=== PATIENT | female | born 1995 | race African-American/Black ===

== ENCOUNTER → 2016-09-08 15:57 | Outpatient (CLI) | payer OTHER ==
[2014-08-27 07:47] VITALS: BMI 32.3
[~2016-09-08 15:57] MED LIST: IBUPROFEN600 MG PO; MOTRIN600 MG PO; NORCO 5/325 TAB1 TA1 PO; PRENATAL COMPLE1 TAB PO
[2016-09-08 16:38] LABS: APPEARANCE CLOUDY (CLEAR); BILIRUBIN NEGATIVE (NEGATIVE); COLOR YELLOW (YELLOW); GLUCOSE NEGATIVE (NEGATIVE); KETONE NEGATIVE (NEGATIVE); LEUKOCYTE ESTERASE 1+ (NEGATIVE); NITRITE NEGATIVE (NEGATIVE); PROTEIN TRACE mg/dL (NEGATIVE); UROBILINOGEN NORMAL (NORMAL)
[2016-09-08 16:39] LABS: BACTERIA MODERATE /hpf (NONE SEEN); EPITHELIAL CELLS 0-5 /hpf (0-5); MUCUS >1+ /lpf (NONE SEEN)
== END | disposition home or self-care (01) ==
LOC: D.LDO 15:57
PROVIDERS: Obstetrics & Gynecology
DX: O26.899 Other specified pregnancy related conditions, unspecified trimester (principal); R35.0 Frequency of micturition; R30.0 Dysuria

== ENCOUNTER → 2016-11-16 13:53 | Outpatient (CLI) | payer OTHER ==
[2014-08-27 07:47] VITALS: BMI 32.3
[~2016-11-16 13:53] MED LIST changes: +FERROUS SULFAT325 MG PO
[2016-11-16 14:39] LABS: APPEARANCE CLEAR (CLEAR); COLOR YELLOW (YELLOW)
[2016-11-16 14:41] LABS: BACTERIA MODERATE /hpf (NONE SEEN); BILIRUBIN NEGATIVE (NEGATIVE); GLUCOSE NEGATIVE (NEGATIVE); KETONE NEGATIVE (NEGATIVE); LEUKOCYTE ESTERASE 1+ (NEGATIVE); MUCUS <1+ /lpf (NONE SEEN); NITRITE NEGATIVE (NEGATIVE); PROTEIN NEGATIVE (NEGATIVE); RED CELLS - URINE RARE /hpf (0-5); SPECIFIC GRAVITY 1.005 (1.005-1.020)
[2016-11-16 15:37] LABS: BASOPHILS 0.2 % (0-2); EOSINOPHILS 0.7 % (0-7); HEMATOCRIT 32.1 % (36.0-48.0); HEMOGLOBIN 10.7 g/dL (12-16); IMMATURE GRANULOCYTES 0.5 % (0-5); LYMPHOCYTES 19.2 % (15-50); MCHC 33.3 g/dL (31.0-37.0); MEAN PLATELET VOLUME 11.9 fL (7.4-10.4); MONOCYTES 5.2 % (2-11); NEUTROPHILS 74.2 % (40-80); PLATELET COUNT 160 10x3/uL (130-400); RBC 3.82 10x6/uL (4.00-5.40); RDW 14.6 % (11.5-14.5); WBC 5.8 10x3/uL (4.8-10.8)
== END | disposition home or self-care (01) ==
LOC: D.LDO 13:53
PROVIDERS: Obstetrics & Gynecology
DX: Z34.83 Encounter for supervision of other normal pregnancy, third trimester (principal); Z3A.37 37 weeks gestation of pregnancy

== ENCOUNTER 2016-12-05 05:07 | Inpatient (IN) | payer OTHER ==
[~2016-12-05] VITALS: Ht 165.1 cm; Wt 86.2 kg
[2016-12-05] VITALS (17 sets, daily range): BP systolic 111–143; BP diastolic 58–75; BMI 31.6
--- NOTE | ~2016-12-05 | OP ---
PATIENT NAME: SATHYA BUITRAGO MEDICAL RECORD: [id number] :94 LOCATION:[facility] ADMISSION DATE:12/05/16 SURGEON: MAGEN DEVLIN MD DATE OF OPERATION: 12/05/2016 PREOPERATIVE DIAGNOSES: 1. Term 40-week . 2. Augmentation of labor. 3. intolerance to labor. POSTOPERATIVE DIAGNOSES: 1. Term 40-week . 2. Augmentation of labor. 3. intolerance to labor. 4. asynclitism. 5. Nuchal cord times 2. PROCEDURE: A primary low transverse section. SURGEON: Magen Devlin MD. ESTIMATED BLOOD LOSS: 2000 cc. INTRAVENOUS FLUIDS: Crystalloid per anesthesia record plus 2 units of packed red blood cells. SPECIMENS: Placenta and cord for gases. FINDINGS: 1. Viable infant, Apgars 9 at 1 and 9 at 5. 2. asynclitism noted upon delivery of the head. 3. Nuchal cord times 2 noted. 4. Lateral extension of the low transverse incision into the main branches of the uterine artery. COMPLICATIONS: None apparent. DESCRIPTION OF PROCEDURE: The patient was taken to the operating room where spinal anesthesia was achieved without difficulty. The patient was then prepped and draped in normal sterile fashion in the dorsal supine position. Turner catheter was placed and a small amount of blood was noted in the Turner upon placement. SCDs were on and functioning properly. The patient was prepped and draped. A Pfannenstiel incision was made, extended downward to the underlying subcutaneous fat to level of the fascia, which was then excised in the midline with a scalpel and excised bilaterally using the Herrera scissors. Superior and inferior aspects of the fascial incision were then grasped with Rob clamps times 2, tented upward and sharply dissected from the underlying rectus muscle. At this point, the rectus muscles were bluntly in the midline. The peritoneum was entered bluntly at the superior aspect of the incision. The peritoneal incision was then extended bilaterally using the Bovie cautery. A bladder flap was created by excising the anterior leaf of the broad ligament across the lower uterine segment and gently dissecting the bladder downward. At this point, a low transverse incision was made and extended superiorly and inferiorly using the Pelosi method. The infant was noted to be deep in the pelvis and asynclitic. The head was delivered upwards towards the incision and OPERATIVE REPORT [id number] SATHYA BUITRAGO delivered atraumatically. A nuchal cord times 2 was noted to be present. The nuchal cord was then reduced and the cord was clamped times 2, cut and the was handed to the awaiting nursery team. Cord was then obtained for gases. The placenta was then manually removed and the uterus was vigorously massaged until a good tone was noted. Brisk bleeding was noted from bilateral corners and these larger branches of the uterine artery were clamped with ring forceps times 2 and the margins of the uterine incision were identified and held using Allis clamps. A good assured distance from the bladder was noted. Repair of the left corner was performed using 0 Vicryl until the corner was built up with 0 Vicryl in a running locked fashion. This was then tied and cut. A second 0 Vicryl was then used to extend across the middle half of the incision. The right corner was then addressed. A large branch of the uterine artery was identified and oversewn using 2-0 Vicryl. The right aspect of the uterine incision was then sewn together with 0 Vicryl using a running locked fashion. A layer of myometrium was then reapproximated to the lower aspect of the incision using 2-0 Vicryl. Good hemostasis noted. At this point, the posterior cul-de-sacs was then thoroughly irrigated and the uterus was replaced into the pelvis. The anterior cul-de-sac was then thoroughly irrigated. No active bleeding was noted. Spud dust and FloSeal was used on the surgical sites to prevent further oozing. At this point, counts were correct times 2. The fascia was repaired with 0 loop PDS times 1 and the skin repaired with abhishek. The patient tolerated the procedure well. Weighing of the lap sponges for accurate blood loss was performed revealing approximately 1600 cc of blood loss and some amount in the suction canister, which also contained irrigation and amniotic fluid. Estimated blood loss found to be about 2000 cc. The patient was started on 1 of 2 units of packed red blood cells intraoperatively. Vital signs remained stable throughout the case. Good hemostasis was noted. The fascia was repaired with 0 loop PDS times 1 and the skin repaired with abhishek. The patient tolerated the procedure well, transferred to postanesthesia recovery stable without incident. TRANSINT:[id number] Voice Confirmation ID: [id number] DOCUMENT ID: [id number] MAGEN DEVLIN MD CC: [id number] DICTATION DATE: 12/05/16 1629 DRAMA CRITIC: 12/05/16 1709 ADM IN [place] [id number] [place] [address]
[2016-12-05] MEDS ORDERED: PRENATAL COMPLE1 TAB PO (05:30)
[2016-12-05] MEDS ORDERED: FERROUS SULFAT325 MG PO (05:30)
[2016-12-05 06:44] LABS: UDS - AMPHET NEGATIVE QUAL (NEGATIVE); UDS - BARB NEGATIVE QUAL (NEGATIVE); UDS - BENZO NEGATIVE QUAL (NEGATIVE); UDS - COCAINE NEGATIVE QUAL (NEGATIVE); UDS - METH NEGATIVE QUAL (NEGATIVE); UDS - OPIATE NEGATIVE QUAL (NEGATIVE); UDS - PCP NEGATIVE QUAL (NEGATIVE); UDS - THC NEGATIVE QUAL (NEGATIVE)
[2016-12-05 06:48] LABS: HEMATOCRIT 32.7 % (36.0-48.0); HEMOGLOBIN 10.6 g/dL (12-16); MCH 27.3 pg (26.0-34.0); MCHC 32.4 g/dL (31.0-37.0); MCV 84.3 fL (80.0-100.0); MEAN PLATELET VOLUME 12.6 fL (7.4-10.4); RBC 3.88 10x6/uL (4.00-5.40); RDW 14.6 % (11.5-14.5); WBC 8.4 10x3/uL (4.8-10.8)
--- NOTE | 2016-12-05 16:21 | NUR ---
ONE UNIT OF [facility]S ADMIN IN OR AND ONE STARTED IN PACU.
--- NOTE | 2016-12-05 16:24 | NUR ---
FUNDUS FIRM AT UMBILICUS WITH MINIMAL LOCIA. THE PATIENT APPEARS TO REST COMFORTABLE
--- NOTE | 2016-12-05 16:35 | NUR ---
RECEIVED PT FROM VIA BED TO ROOM 1273. BED LOCKED AND PLACED IN LOW POSITION. VSS. AAO X 3. HRRR WITHOUT AUDIBLE MURMUR. BBS CLEAR. BS X 4. FUNDUS FIRM AT U/U. RUBRA LOCHIA SCANT AMT. NO CLOTS NOTED. ABDOMINAL DRESSING DRY WITHOUT DRAINAGE NOTED. NEG HOMANS' SIGN. PPP. NO EDEMA NOTED TO BLE. SCDS ON BLE. PUMP ON. CHANEY TO GRAVITY DRAINING BLOOD-TINGED URINE. 1700 ML EMPTIED FROM CHANEY. PIV OF NS WITH PITOCIN INFUSING AT 125 ML/HR. SITE CLEAR TO RIGHT FOREARM. BLOOD INFUSING VIA RANGER BLOOD WARMER AT SLOW RATE. PT C/O INCISIONAL PAIN OF "8" ON 0-10 PAIN SCALE. ICE PACK TO INCISION. PT ORIENTED TO ROOM, BED, AND CALL LIGHT. SR UPX 2. CALL LIGHT IN REACH.
--- NOTE | 2016-12-05 16:45 | NUR ---
PT REQUESTS AND RECEIVES ICE PACK REMOVED AT THIS TIME. PT C/O PAIN WITH ICE PACK IN PLACE.
--- NOTE | 2016-12-05 16:50 | NUR ---
DILAUDID SALES EXHIBITOR STARTED ORDERED. PT INSTRUCTED ON MEDICATION AND USE OF BUTTON. DEMONSTRATES UNDERSTANDING.
--- NOTE | 2016-12-05 17:15 | NUR ---
BLOOD TRANSFUSION COMPLETED. NS INFUSING TO FLUSH LINE. VSS. SITE CLEAR. PT ISRAEL WELL.
--- NOTE | 2016-12-05 17:25 | NUR ---
BLOOD TUBING DISCONTINUED. PIV SITE CLEAR.
--- NOTE | 2016-12-05 17:30 | NUR ---
SMALLER ICE PACK TO INCISION. PT STATES SMALLER ICE PACK LESS PAINFUL.
--- NOTE | 2016-12-05 17:45 | NUR ---
PT STATES "I CAN'T DO THIS ICE PACK". ICE PACK REMOVED PER PT REQUEST.
--- NOTE | 2016-12-05 17:55 | NUR ---
FUNDUS FIRM AT U/U. RUBRA LOCHIA MOD AMT. NO CLOTS NOTED. PERIPAD CHANGED.
--- NOTE | 2016-12-05 18:00 | NUR ---
PT LYING SUPINE IN BED. VISITS WITH FAMILY. REQUESTS AND RECEIVES LEMON-NAPAIMUTE SODA.
--- NOTE | 2016-12-05 18:33 | NUR ---
FAMILY MEMBER IN [facility]. STATES "SHE NEEDS SOME ICE WATER". ICE WATER TO PT AT THIS TIME. PT C/O PAIN NOT RELIEVED BY DILAUDID ORTHOPEDIC DESIGNER. FUNDUS FIRM AT U/U. RUBRA LOCHIA MOD AMT. NO CLOTS NOTED. PERIPAD CHANGED.
--- NOTE | 2016-12-05 18:34 | NUR ---
ROOM NOTED WITH SEVERAL FAMILY MEMBERS. FAMILY ENCOURAGED TO ALLOW PT TO REST AND MINIMIZE NUMBER IN ROOM AT A TIME.
--- NOTE | 2016-12-05 18:40 | NUR ---
DR FARRIS NOTIFIED OF PT C/O PAIN NOT RELIEVED BY CHIEF UNIT FORESTER. NEW ORDERS RECEIVED.
--- NOTE | 2016-12-05 18:50 | NUR ---
DILAUDID 0.4 MG BOLUS DOSE GIVEN ORDERED FOR BREAKTHROUGH PAIN. BRAKE OPERATOR SHEET METAL REPROGRAMMED ORDERED ( 0.2 MG Q 9 MINUTES WITH 6 MG EVERY 4 HOUR LOCKOUT). PT INSTRUCTED ON DOSAGE CHANGE WITH MEDICATION. PT VERBALIZES UNDERSTANDING.
--- NOTE | 2016-12-05 18:58 | NUR ---
REPORT GIVEN TO ON-COMING SHIFT.
--- NOTE | 2016-12-05 19:12 | NUR ---
BEDSIDE REPORT REC'D FROM Brigido VELASCO RN. PT REC'D LAYING ON BACK IN SEMI FOWLERS POSITION. PT TEARFUL AND PANTING, STATING THAT SHE IS HURTING. ENCOURAGED TO SLOW BREATHING BY TAKING SLOW DEEP BREATH AND AVOID TENSING UP. PT DEMONSTRATES UNDERSTANDING. SHIFT ASSESSMENT COMPLETED. PAIN 10/, ABD AND INCISION. PT STATES THAT SHUTTLE BUGGY OPERATOR DOES HELP BUT IS NOT TAKING PAIN AWAY, VERBALIZED THAT SHE KNEW SHE WOULD HAVE PAIN BUT PAIN AT BEST 12/25. FUNDUS FIRM, U1 WITH MODERATE AMT RUBRA LOCHIA TO PERIPAD, NO CLOTS NOTED. PERIPAD CHANGED. DRSG TO INCISION, CLEAN, DRY, AND INTACT. HYPOACTIVE BOWEL SOUNDS PRESENT IN ALL 4 QUADRANTS, PT STATES THAT SHE HAS NOT PASSED FLATUS YET. 325 MLS EMPTIED FROM CHANEY. EDUCATED ON IMPORTANCE OF COUGHING AND DEEP BREATHING, TURNING Q2 AND USING INCENTIVE SPIROMETER, PT VERBALIZED UNDERSTANDING OF IMPORTANCE OF USING, HOWEVER REFUSES AT THIS TIME STATING "I JUST CAN'T WHILE I'M HURTING LIKE THIS." INSTRUCTED ON SPLINTING AND USE OF ICE PACK, PT REFUSES ICE PACK STATING IT IS TOO HEAVY AND CAUSES HER MORE PAIN. PT DEMONSTRATES SPLINTING TO RN. PT REFUSES TO TURN TO SIDE AT THIS TIME. SCD'S REMOVED, SKIN WDL, SCD'S REAPPLIED. ICE WATER GIVEN. VISITOR CONVERSING, ENCOURAGED VISITOR TO LEAVE ROOM TO CONVERSE. LIGHTS DIMMED AND COOL CLOTH GIVEN TO PT. BREATH SOUNDS CLEAR, UNEQUAL AND UNLABORED. DENIES ADDITIONAL NEEDS. BED IN LOW POSITION WITH UPPER SIDE RAILS X2. CL AND PHONE WITHIN REACH. WILL CONT TO MONITOR AND ASSIST PRN. DR. AMES NOW AT BEDSIDE CONVERSING WITH PT. WILL CONT TO MONITOR AND ASSIST PRN.
[2016-12-05 19:18] LABS: CALC OSMOLALITY 271 mosm/kg (275-300); CALCIUM 7.3 mg/dL (8.5-10.1); CARBON DIOXIDE 20.3 mmol/L (21.0-32.0); CHLORIDE - SERUM 106 mmol/L (98-107); CREATININE - SERUM 0.5 mg/dL (0.6-1.3); GLUCOSE 86 mg/dL (74-106); SODIUM 138 mmol/L (136-145); UREA NITROGEN 5 mg/dL (7-18); eGFR NON AFRICAN AMERICAN > 90 mL/min (90-120)
[2016-12-05 19:28] LABS: BASOPHILS 0.1 % (0-2); EOSINOPHILS 0 % (0-7); HEMATOCRIT 34.3 % (36.0-48.0); HEMOGLOBIN 11.3 g/dL (12-16); IMMATURE GRANULOCYTES 0.5 % (0-5); LYMPHOCYTES 3.3 % (15-50); MCH 27.8 pg (26.0-34.0); MCHC 32.9 g/dL (31.0-37.0); MCV 84.3 fL (80.0-100.0); MEAN PLATELET VOLUME 11.8 fL (7.4-10.4); MONOCYTES 5.2 % (2-11); NEUTROPHILS 90.9 % (40-80); PLATELET COUNT 135 10x3/uL (130-400); RBC 4.07 10x6/uL (4.00-5.40); RDW 14.4 % (11.5-14.5); WBC 19.8 10x3/uL (4.8-10.8)
--- NOTE | 2016-12-05 19:35 | NUR ---
LAB RESULTS CALLED TO DR. FARRIS. REPORTED PT UNCONTROLLED PAIN. ORDERS REC'D TO GIVE TORADOL Q 6 HOURS PRN PAIN.
--- NOTE | 2016-12-05 19:42 | NUR ---
PAIN 10/10, TO ABD AND INCISION, CONSTANT ACHING, BURNING, STINGING, CRAMPING AND THROBBING PER PT REPORT. UPDATED ON PLAN OF CARE AND NEW ORDERS FOR TORADOL. EDUCATED ON MEDICATION USE, FREQUENCY BEING PRN, AND SIDE EFFECTS. VERBALIZED UNDERSTANDING. TORADOL GIVEN. PT REQUEST FAN, PROVIDED PER REQUEST, IN NBN AND ROOM TEMP DECREASED. PT VERBALIZED UNDERSTANDING THAT ROOM TEMP WOULD HAVE TO BE INCREASED WHEN INFANT CAME BACK TO ROOM. PT NOTED TO BE GRIMACING AND RESTLESS, FAMILY MEMBERS REMAIN AT BEDSIDE. LIGHTS TURNED OFF, AND VISITOR ENCOURAGED TO REMAIN QUIET. ADDITIONAL PILLOW PLACED UNDER LOWER BACK FOR COMFORT PER PT REQUEST. BED REMAINS IN LOW POSITION WITH UPPER SIDE RAILS RAISED X2. CL AND PHONE PLACED WITHIN REACH. PT CONTINUES TO REFUSE TO USE INCENTIVE SPIROMETER, AND PERFORM COUGHING AND DEEP BREATHING.
--- NOTE | 2016-12-05 20:16 | NUR ---
RN TO BEDSIDE FOR PAIN REASSESSMENT, PAIN 09/24, PT ON CELL PHONE AT THIS TIME. STATES PAIN IS MUCH MORE TOLERABLE AND SHE IS ABLE TO REST. FAMILY MEMBER IN THE SHOWER AT THIS TIME. PT STATES THAT OTHER VISITORS ARE IN THE WAITING ROOM. DENIES NEEDS AT THIS TIME. BED IN LOW POSITION WITH UPPER SIDE RAILS RAISED X2. CL AND PHONE WITHIN REACH. WILL CONT TO MONITOR AND ASSIST PRN. PT CONTINUES TO REFUSE USE OF INCENTIVE SPIROMETER AND COUGH/DEEP BREATHING EXERCISES AT THIS TIME.
--- NOTE | 2016-12-05 21:18 | NUR ---
RN TO BEDSIDE FOR ROUNDS. PT RATES PAIN 6/10 TO ABD CRAMPING AND SORENESS, AND BURNING AND STINGING TO THE INCISION. PT AGREEABLE TO REPOSITIONING, REPOSITIONED TO RIGHT SIDE WITH PILLOW PLACED BEHIND BACK FOR COMFORT AND SUPPORT. MODERATE AMT RUBRA LOCHIA NOTED TO PERIPAD, NO CLOTS, FUNDUS REMAINS FIRM, U1, NO CLOTS PRESENT. PERINUM CLEANSED, AND PERIPAD CHANGED. DRSG TO INCISION REMAINS CLEAN, DRY, AND INTACT. NEW ICE PACK APPLIED OVER GOWN TO INCISION. PT REFUSED DEEP BREATHING AND COUGHING BUT DID PERFORM INCENTIVE SPIROMETER X10 WITH GOOD EFFORT. APPLE JUICE GIVEN PER REQUEST. LINENS PROVIDED TO FRIEND THAT IS STAYING WITH PT. DENIES ADDITIONAL NEEDS AT THIS TIME. BED IN LOW POSITION WITH UPPER SIDE RAILS RAISED X2. CL AND PHONE WITHIN REACH. WILL CONT TO MONITOR AND ASSIST PRN. 200 MLS EMPTIED FROM CHANEY.
--- NOTE | 2016-12-05 22:08 | NUR ---
RN TO BEDSIDE FOR ROUNDS. PT BONDING WITH INFANT. STATES PAIN IS 5-6/10. DENIES NEEDS AT THIS TIME. FAMILY MEMBERS NOW AT BEDSIDE AND PT ALSO CONVERSING WITH FAMILY AND LAUGHING. BED IN LOW POSITION WITH UPPER SIDE RAILS RAISED X2. CL AND PHONE WITHIN REACH. WILL CONT TO MONITOR AND ASSIST PRN.
--- NOTE | 2016-12-05 23:28 | NUR ---
RN TO BEDSIDE. PERINUM CLEANSED. CHUX AND PERIPAD CHANGED. VSS. MODERATE AMT RUBRA LOCHIA TO PERIPAD, NO CLOTS NOTED. ICE PACK REMOVED. DRSG REMAINS CLEAN, DRY, AND INTACT. PT TURNED TO LEFT SIDE WITH PILLOW PLACED BEHIND BACK FOR COMFORT AND SUPPORT AND MOVED UP IN BED. 175 MLS PRESENT IN CHANEY. PT CLEANSED FACE AND UPPER BODY AND DEORDERANT AND LOTION PROVIDED PER REQUEST. PAIN 5-6/10 FOLLOWING ACTIVITY, REPORTS 4/10 PRIOR TO ACTIVITY. POPICLE, SODA, AND ICE WATER GIVEN. DENIES ADDITIONAL NEEDS AT THIS TIME. REQUESTED ICE PACK REMAIN OFF OF INCISION. BED IN LOW POSITION WITH UPPER SIDE RAILS RAISED X2. CL AND PHONE WITHIN REACH. FRIEND REMAINS AT BEDSIDE RESTING ON COUCH. WILL CONT TO MONITOR AND ASSIST PRN.
--- NOTE | 2016-12-06 00:50 | NUR ---
NEW BAG NS WITH 20 UNITS PIT HUNG. PT GRIMACING AND TEARFUL. STATES THAT SHE IS HURTING. REQUESTS TORADOL, FREQUENCY EXPLAINED. DISCUSSED PATTERN WEAVER BOLUS DOSE, PT AGREEABLE. 0.4 MG BOLUS OF DILUADAD GIVEN PER ORDER. DENIES ADDITIONAL NEEDS AT THIS TIME. PT ALSO DEEP BREATHING AT THIS TIME. BED IN LOW POSITION WITH UPPER SIDE RAILS RAISED X2. CL AND PHONE WITHIN REACH. WILL CONT TO MONITOR AND ASSIST PRN.
--- NOTE | 2016-12-06 01:41 | NUR ---
RN TO BEDSIDE FOR ROUNDS. PT TALKING ON CELL PHONE. PAIN 10/24, TORADOL GIVEN SIVP PER REQUEST. 200 MLS EMPTIED FROM CHANEY. PT POSITIONED SELF TO BACK FROM SIDE. INCENTIVE SPIROMETER DONE X10 WITH GOOD EFFORT. PT REFUSED TO COUGH BUT DID PERFORM DEEP BREATHING WITH GOOD EFFORT. ICE CHIPS GIVEN PER REQUEST. DENIES ADDITIONAL NEEDS AT THIS TIME. BED IN LOW POSITION WITH UPPER SIDE RAILS RAISED X2. CL AND PHONE WITHIN REACH. WILL CONT TO MONITOR AND ASSIST PRN.
--- NOTE | 2016-12-06 02:15 | NUR ---
PAIN REASSESSMENT COMPLETED. PT RESTING WITH EYES CLOSED, OPENS EYES WITH DOOR OPENING. PAIN 4/10. DENIES ADDITIONAL NEEDS AT THIS TIME. BED IN LOW POSITION WITH UPPER SIDE RAILS RAISED X2. CL AND PHONE WITHIN REACH. WILL CONT TO MONTIOR AND ASSIST PRN.
[2016-12-06 04:08] VITALS: BP 119/65
--- NOTE | 2016-12-06 04:08 | NUR ---
RN TO BEDSIDE FOR ROUNDS. PT TEXTING AT THIS TIME. PAIN 5-6/10 TO ABD AND INCISION. VSS. FUNDUS FIRM, U2 WITH SMALL AMT RUBRA LOCHIA TO PERIPAD, NO CLOTS PRESENT. PERINUM CLEANSED, CHUX CHANGED PER PT REQUEST. 160 MLS EMPTIED FROM CHANEY. INCENTIVE SPIROMETER USED X10 WITH DEEP BREATHING DONE WITH GOOD EFFORT. PT CONTINUES TO REFUSE TO COUGH, REINFORCED IMPORTANCE OF COUGHING ALSO. ICE WATER, APPLE JUICE, AND ICE CHIPS GIVEN PER REQUEST. SCD'S REMAIN ON. DENIES ADDITIONAL NEEDS AT THIS TIME. REQUESTS BE BROUGHT TO ROOM. BED IN LOW POSITIONG WITH UPPER SIDE RAILS RAISED X2. CL AND PHONE WITHIN REACH. WILL CONT TO MONITOR AND ASSIST PRN.
--- NOTE | 2016-12-06 04:28 | NUR ---
INFANT BROUGHT TO ROOM BY RN. ID BANDS MATCHED. INFANT HANDED TO PT. INSTRUCTED TO USE CL IF ASSISTANCE IS NEEDED WITH OR IF SHE BECOMES DROWSY, VERBALIZED UNDERSTANDING. CL AND PHONE WITHIN REACH. BED IN LOW POSITION WITH UPPER SIDE RAILS RAISED X2. WILL CONT TO MONITOR AND ASSIST PRN.
--- NOTE | 2016-12-06 06:12 | NUR ---
RN TO BEDSIDE FOR ROUNDS. LAB AT BEDSIDE DRAWING BLOOD. CHANEY DRAINED, 275 MLS EMPTIED FROM CHANEY. PT RATES PAIN 11/24, REQUESTED TORADOL, EXPLAINED THAT IT WASN'T TIME FOR TORADOL, PT REQUESTED BOLUS FROM MANUFACTURERS SERVICE REPRESENTATIVE, BOLUS GIVEN. PERINUM CLEANSED, PERIPAD CHANGED WITH SCANT AMT RUBRA LOCHIA. PT POSITIONED SELF TO BACK. ICE PACK REAPPLIED. DENIES ADDITIONAL NEEDS AT THIS TIME. BED IN LOW POSITION WITH UPPER SIDE RAILS RAISED X2. CL AND PHONE WITHIN REACH. WILL CONT TO MONITOR AND ASSIST PRN.
[2016-12-06 06:59] LABS: BASOPHILS 0.1 % (0-2); EOSINOPHILS 0.1 % (0-7); HEMATOCRIT 29.1 % (36.0-48.0); HEMOGLOBIN 9.7 g/dL (12-16); IMMATURE GRANULOCYTES 0.2 % (0-5); LYMPHOCYTES 5.2 % (15-50); MCH 27.6 pg (26.0-34.0); MCHC 33.3 g/dL (31.0-37.0); MCV 82.9 fL (80.0-100.0); MEAN PLATELET VOLUME 11.5 fL (7.4-10.4); MONOCYTES 4.1 % (2-11); NEUTROPHILS 90.3 % (40-80); PLATELET COUNT 125 10x3/uL (130-400); RBC 3.51 10x6/uL (4.00-5.40); RDW 14.7 % (11.5-14.5)
[2016-12-06 07:07] LABS: CALC OSMOLALITY 269 mosm/kg (275-300); CALCIUM 7.7 mg/dL (8.5-10.1); CARBON DIOXIDE 24.5 mmol/L (21.0-32.0); CHLORIDE - SERUM 104 mmol/L (98-107); CREATININE - SERUM 0.6 mg/dL (0.6-1.3); GLUCOSE 80 mg/dL (74-106); POTASSIUM - SERUM 3.7 mmol/L (3.5-5.1); SODIUM 137 mmol/L (136-145); UREA NITROGEN 5 mg/dL (7-18); eGFR NON AFRICAN AMERICAN > 90 mL/min (90-120)
[2016-12-06 07:09] LABS: APTT 31.5 SECONDS (22.8-39.4); INR 1.26 (0.85-1.17); PROTIME 15.6 SECONDS (11.6-15.0)
[2016-12-06 07:22] LABS: RAPID PLASMA REAGIN Non Reactive (Non Reactive)
[2016-12-06 07:32] VITALS: BP 112/69
--- NOTE | 2016-12-06 07:32 | NUR ---
THIS RN TO ROOM FOR SHIFT ASSESSMENT. PT LYING IN BED ON BACK, HOB 30 DEGREES, LIGHTS IN ROOM DIMMED. PT AAOx3. PT RATES PAIN 6/10, WORSE WITH MOVEMENT, REQUESTS ADDITIONAL PAIN MED IF POSSIBLE. SHIFT ASSESSMENT COMPLETE, VSS, SEE FLOWSHEET FOR DOC. PITOCIN AND DILAUDID DEVELOPMENT GEOLOGIST INFUSING TO PATENT RIGHT FA PIV, NO SIGNS OF PHLEBITIS OR INFILTRATION. FF, ML, U/2. NO LOCHIA NOTED, PT STATES PM NURSE RECENTLY CHANGED IT. OCCLUSIVE DSG OVER LT ABD INCISIONS IS C/D/I. CHANEY CATH DRAINING DARK YELLOW URINE TO BEDSIDE DRAINAGE. 125ML EMPTIED FROM UROMETER. SCD'S ON BILAT TO LE. WILL RETURN WITH PRN TORADOL.
--- NOTE | 2016-12-06 07:47 | NUR ---
PT ADMIN PRN TORADOL PER ORDER FOR PAIN RATED 6/10, WORSE WITH MOVEMENT. NEW ICE PACK TO INCISION. PT INSTRUCTED ON COUGH AND DEEP BREATHING, RETURN DEMONSTRATES x2 WITH WEAK EFFORT, PT ENCOURAGED AND INSTRUCTED ON IMPORTANCE OF COUGHING AND DEEP BREATHING. UNDERSTANDING VERBALIZED. PT DENIES FURTHER NEEDS. SRUx2, CL IN REACH.
--- NOTE | 2016-12-06 08:11 | NUR ---
DR FARRIS TO ROOM, ROUNDING ON PT.
--- NOTE | 2016-12-06 08:35 | NUR ---
THIS RN TO ROOM FOR PAIN REASSESSMENT. PT STATES PAIN IS BETTER, BUT CONTINUES TO RATE PAIN 6/10. CHANEY CATH REMOVED, PT INSTRUCTED TO CALL WHEN SHE FEELS THE URGE TO VOID AND THIS RN WILL ASSIST HER TO BR. PT INSTRUCTED IV MEDS WILL BE TURNED OFF AND PO MEDS STARTED, AND GOALS FOR TODAY ARE TO WALK AND SHOWER. UNDERSTANDING VERBALIZED. PT ASSISTED TO SITTING UP IN BED TO EAT BREAKFAST. PT DENIES FURTHER NEEDS. SRUx2, CL IN REACH. WILL CONT TO MONITOR.
--- NOTE | 2016-12-06 09:29 | NUR ---
THIS RN TO ROOM FOR PT CHECK. PT SITTING UP IN BED HOLDING INFANT, AAOx3, DENIES ANY NEEDS AT THIS TIME. ROOM TRASH TAKEN OUT. MENU COLLECTED FOR FANS STAFF. SRDori2 CL IN REACH. WILL CONT TO MONITOR.
--- NOTE | 2016-12-06 09:40 | NUR ---
PT CALLS OUT DENTAL LABORATORY SUPERVISOR LIGHT REQUESTING BE TAKEN BACK TO THE NURSERY, STATES "THEY JUST GAVE ME SOME PAIN MEDICATION AND I KEEP DOZING OFF, AND HE WON'T EAT". BOTTLE NOTED TO HAVE APPROX 5 CC'S TAKEN. PT'S CELL PHONE RINGS AND PT ANSWERS CELL PHONE AND PROCEEDS TO TALK. PT IS NOT DROWSY, BUT AWAKE, ALERT AT THIS TIME. SR UP X2, CALL LIGHT AND PHONE WITHIN REACH.
--- NOTE | 2016-12-06 09:45 | NUR ---
INFANT TAKEN TO THE NURSERY IN [place], WITH REPORT GIVEN TO Jd GORE RN.
--- NOTE | 2016-12-06 10:40 | NUR ---
THIS RN TO ROOM TO AMBULATE PT AND ASSIST TO SHOWER. RIGHT FA PIV SALINE LOCKED. SCD'S REMOVED AND PAUSED. PT UP TO SHOWER WITH MINIMAL ASSIST. PT VOIDS APPROX 300ML MIXED WITH RUBRA LOCHIA. PT TO SHOWER. PT INSTRUCTED ON WASHING INCISION, RETURN DEMONSTRATES AND WASHES CORRECTLY WITH MILD SOAP AND WARM WATER. BED LINENS CHANGED WHILE PT SHOWERING. PT OUT OF SHOWER, PLACED IN CLEAN GOWN AND DISPOSABLE PANTIES, NEW PERIPAD TO PERINEUM, WELL PAD TO INCISION WITH RATIONALE FOR KEEPING DRY TO REDUCE RISK OF INFECTION. UNDERSTANDING VERBALIZED. PT AMBULATES BACK TO BED WITH MINIMAL ASSIST. PT REQUESTS TO SIT UP IN BED AND REST FOR A MOMENT BEFORE SCD'S BACK ON. WILL RETURN SHORTLY. SRUx2, CL IN REACH.
[2016-12-06 11:06] VITALS: BP 119/62
--- NOTE | 2016-12-06 11:08 | NUR ---
THIS RN TO ROOM FOR VITALS. VSS, SEE FLOWSHEET FOR DOC. LOTION TO PT'S LE PER REQUEST, SCD'S BACK ON TO LE BILAT. PT ADMIN PRN NORCO 10 ORDERED FOR PAIN RATED 7/10 AT INICISION AND ABD CRAMPING, SEE EMAR FOR DOC. NEW ICE PACK APPLIED TO INCISION. LIGHTS IN ROOM DIMMED, PT ENCOURAGED TO REST BEFORE NEXT FEED TIME. SRUx2, CL IN REACH.
--- NOTE | 2016-12-06 12:48 | NUR ---
THIS RN TO ROOM FOR PT CHECK. PT LYING IN BED, SUPINE, AAOx3, TEXTING ON PHONE WITH LIGHTS DIMMED. FAMILY MEMBER AT BEDSIDE. PT RATES PAIN 7/10, WANTS TO KNOW WHEN SHE MAY HAVE PAIN MEDS AGAIN. PT INFORMED OF NEXT AVAILABLE MED TIMES PER ORDERED SCHEDULE AND WRITTEN ON BOARD. UNDERSTANDING VERBALIZED. PT DENIES FURTHER NEEDS. SRUx2, CL IN REACH.
[2016-12-06 15:17] VITALS: BP 119/70
--- NOTE | 2016-12-06 15:17 | NUR ---
THIS RN TO ROOM FOR PT CHECK. PT SITTING UP IN BED, VISITING WITH FAMILY. PT RATES PAIN 8-9/10. VSS, SEE FLOWSHEET FOR DOC. PT ADMIN PRN IBUPROFEN AND NORCO PER ORDER, SEE EMAR FOR DOC. PT DENIES NEEDING TO VOID OR ANY OTHER NEEDS AT THIS TIME. PT ENCOURAGED TO VOID SOON, AND TO CALL FOR ASSIST TO BR. UNDERSTANDING VERBALIZED. WILL CONT TO MONITOR.
--- NOTE | 2016-12-06 15:44 | NUR ---
PT CALLS OUT CELLOPHANE CASTING MACHINE REPAIRER LIGHT FOR ASSIST TO BR TO VOID. PT TO BR WITH MINIMAL ASSIST. PT VOIDS LARGE AMT URINE WITH SCANT RUBRA LOCHIA. PT STATES SHE WANTS TO "JUST SIT HERE FOR A MINUTE." PT DENIES FEELING DIZZY OR LIGHTHEADED. PT INSTRUCTED ON PULL CORD NEXT TO TOILET WHEN READY TO GET BACK IN BED, UNDERSTANDING VERBALIZED. FAMILY MEMBER IN ROOM WITH PT.
--- NOTE | 2016-12-06 15:50 | NUR ---
PT CALLS OUT ON PULL CORD FOR ASSIST BACK TO BED. THIS RN TO ROOM. PT PROVIDED WITH WARM WET CLOTH AND ALOE VESTA FOR SELF PERICARE. PT PLACES NEW PERIPAD TO PERINEUM AND INCISION. PT AMBULATES BACK TO BED WITHOUT ASSIST. SCD'S REPLACED. PT DENIES FURTHER NEEDS AT THIS TIME. FAMILY IN ROOM. SRUx2, CL IN REACH.
[2016-12-06 18:21] VITALS: BP 116/63
--- NOTE | 2016-12-06 18:25 | NUR ---
THIS RN TO ROOM FOR PT CHECK. PT LYING IN BED, SUPINE, VISITING WITH FAMILY MEMBER. PT DENIES PAIN BUT C/O DIZZINESS. VITALS OBTAINED AND NOTED TO BE STABLE, SEE FLOWSHEET FOR DOC. PT INSTRUCTED DIZZINESS MAY BE DUE TO TAKING NORCO TAB FOR PAIN. PT ENCOURAGED TO REST. PT DENIES ANY NEEDS. SRUx2, CL IN REACH. WILL CONT TO MONITOR.
--- NOTE | 2016-12-06 18:52 | NUR ---
BEDSIDE REPORT REC'D FROM Jd LEO RN. WITH HOB ELEVATED 45 DEGREES, TEXTING ON CELL PHONE, DENIES NEEDS AT THIS TIME. BED IN LOW POSITION WITH UPPER SIDE RAILS RAISED X2. CL AND PHONE WITHIN REACH. WILL CONT TO MONITOR AND ASSIST PRN.
[2016-12-06 19:14] VITALS: BP 113/55
--- NOTE | 2016-12-06 19:14 | NUR ---
RN BACK TO BEDSIDE. SHIFT ASSESSMENT COMPLETED. VSS. FUNDUS FIRM, U1 WITH SCANT AMT RUBRA LOCHIA, NO CLOTS. PT STATES THAT SHE VOIDED AT 1830 AND DENIES NEED TO VOID AT THIS TIME. BLADDER NONDISTENDED, PT STATES THAT SHE IS VOIDING WITHOUT DIFFICULTY AND HAS PASSED FLATUS TODAY. INCISION CLEAN, DRY, AND WELL APPROXIMATED WITH MOISÉS INTACT. PERIPAD TO INCISION CHANGED WITH NO DRAINAGE NOTED. PAIN 3/10 INTERMITTEN ABD CRAMPING WITH INCISIONAL BURNING, STINGING,AND SORENESS. SCD'S IN PLACE, REMOVED FOR SKIN INSPECTION, SKIN REMAINS WNL. ENCOURAGED PT TO AMBULATE IN RING, REFUSED AT THIS TIME, STATING THAT SHE WANTS TO TAKE A NAP. REPORTS THAT WHEN SHE GETS UP OOB SHE IS DIZZY, INSTRUCTED TO NOTIFY RN THE NEXT SHE GETS OUT OF BED FOR ORTHOSTATIC V/S TO BE OBTAINED AND FALL PREVENTION, VERBALIZED UNDERSTANDING. DISCHARGE PLANNING INITIATED WITH INSTRUCTION THAT SHE WOULD BE BROUGHT TO FEED THROUGHOUT P.M SHIFT, VERBALIZED UNDERSTANDING STATING THAT SHE HAD FED ALL DAY. INSTRUCTED ON S/S OF INFECTION TO REPORT TO RN/MD FOLLOWING D/C IF THEY OCCUR WELL REINFORCED INCISIONAL CARE WITH UNDERSTANDING VERBALIZED. DENIES QUESTIONS AT THIS TIME. PT'S MOTHER AT BEDSIDE AND PRESENT FOR INSTRUCTION AND ASSESSMENT. PLAN OF CARE FOR SHIFT REVIEWED WITH PT, VERBALIZED UNDERSTANDING AND AGREEMENT. BED IN LOW POSITION WITH UPPER SIDE RAILS RAISED X2. CL AND PHONE WITHIN REACH. WILL CONT TO MONITOR AND ASSIST PRN.
--- NOTE | 2016-12-06 19:21 | NUR ---
INFANT TO ROOM BY Alva DINH RN FOR FEEDING.
--- NOTE | 2016-12-06 20:06 | NUR ---
RN TO BEDSIDE FOR ROUNDS. PT BONDING WITH INFANT. STATES THAT SHE IS HUNGRY, SANDWICH TRAY GIVEN PER REQUEST. DENIES ADDITIONAL NEEDS. ENCOURAGED AMBULATION, REQUESTS TO CONTINUE BONDING WITH AT THIS TIME. REINFORCED TO CL RN FOR ASSISTANCE OOB, VERBALIZED UNDERSTANDING. BED IN LOW POSITION WITH UPPER SIDE RAILS RAISED X2. CL AND PHONE WITHIN REACH. WILL CONT TO MONITOR AND ASSIST PRN.
--- NOTE | 2016-12-06 21:07 | NUR ---
CALLED TO ROOM VIA CL. PT STATES THAT SHE NEEDS TO VOID AND REQUESTS PAIN MEDICATION, STATES PAIN 7/10. ORTHOSTATIC B/P'S OBTAINED R/T C/O OF DIZZINESS: LAYIN/60, SITTIN/56, STANDIN/67. PT AMBULATED TO BATHROOM WITH STANDBY ASSIST, REPORTS THAT SHE IS NO LONGER DIZZY PRIOR TO SITTING DOWN VOID. VOIDED LARGE AMT. PERINEAL CARE DONE PER PT, SMALL AMT RUBRA LOCHIA TO PERIPAD, NO CLOTS PRESENT. NORCO AND RANDALL GIVNEN PER REQUEST OF ABD CRAMPING, AND INCISIONAL BURNING, STINGING, AND SORENESS. ICE WATER AND APPLE JUICE GIVEN. DENIES ADDITIONAL ROOM. INFANT TAKEN BACK TO NBN BY NBN RN. BED IN LOW POSITION WITH UPPER SIDE RAILS RAISED X2. CL AND PHONE WITHIN REACH. WILL CONT TO MONITOR AND ASSIST PRN.
--- NOTE | 2016-12-06 21:32 | NUR ---
ABD BINDER APPLIED. PT INSTRUCTED ON USE AND VERBALIZES UNDERSTANDING.
--- NOTE | 2016-12-06 21:55 | NUR ---
PAIN REASSESSMENT COMPLETED. 07/25. LIGHTS TURNED OFF PER PT REQUEST. ICE WATER GIVEN. PT STATES THAT SHE IS REALLY DIZZY AT THIS TIME. FUNDUS FIRM U2, SCANT RUBRA LOCHIA, NO CLOTS NOTED. ABD SOFT AND NONDISTENDED. PT STATES THAT SHE IS TIRED AND IS GOING TO TRY TO GO TO SLEEP. PT STATES THAT SHE THINKS THE PAIN MEDICATION MAYBE CAUSING HER TO BE DIZZY. BED IN LOW POSITION WITH UPPER SIDE RAILS RAISED X2. CL AND PHONE WITHIN REACH. PT VERBALIZE THAT SHE WILL CALL USING CL FOR ASSISTANCE OOB. WILL CONT TO MONITOR AND ASSIST PRN.
--- NOTE | 2016-12-06 23:04 | NUR ---
INFANT TAKEN TO ROOM PER PT REQUEST. VISITORS NOW IN ROOM. PT CONVERSING WITH VISITORS AT THIS TIME. DENIES NEEDS AT THIS TIME. BED IN LOW POSITION WITH UPPER SIDE RAILS RAISED X2. CL AND PHONE WITHIN REACH. WILL CONT TO MONITOR AND ASSIST PRN.
--- NOTE | 2016-12-07 00:13 | NUR ---
RN TO BEDSIDE. PT PLAYING ON CELL PHONE. STATES THAT SHE IS NOT DIZZY AT THIS TIME. VSS. FUNDUS FIRM, U2 WITH SMALL AMT RUBRA LOCHIA TO PERIPAD, NO CLOTS. PT STATES THAT SHE VOIDED WHILE FAMILY WAS IN THE ROOM. SCD'S REAPPLIED. DENIES ADDITIONAL NEEDS AT TIME. BED IN LOW POSITION WITH UPPER SIDE RAILS RAISED X2. CL AND PHONE WITHIN REACH. WILL CONT TO MONITOR AND ASSIST PRN. PAIN REMAINS 4/10, DENIES NEED FOR INTERVENTION AT THIS TIME.
--- NOTE | 2016-12-07 01:30 | NUR ---
RN TO BEDSIDE FOR ROUNDS. PT TALKING ON PHONE. INFANT BROUGHT TO ROOM PER REQUEST. PT UP TO VOID, VOIDED LARGE AMT. PT DENIES DIZZINESS AT THIS TIME. PT AMBULATED FROM ROOM TO NURSES STATION FOLLOWING VOID, NON-SKID SOCKS GIVEN PRIOR TO WALKING. TOLERATED WALKING WELL. ABD BINDER REMAINS IN PLACE, PT REPORTS THAT BINDER HAS HELPED MAKING GETTING UP AND DOWN EASIER. ICE WATER GIVEN. LINEN'S PROVIDED TO VISITOR WHO WILL BE STAYING THE REST OF THE NIGHT. DENIES ADDITIONAL NEEDS. WILL CONT TO MONITOR AND ASSIST PRN. BED IN LOW POSITION WITH UPPER SIDE RAILS RAISED X2. CL AND PHONE WITHIN REACH.
--- NOTE | 2016-12-07 02:37 | NUR ---
PT CALLS VIA CL, RN TO BEDSIDE. PAIN 7/10 ABD CRAMPING AND INCISIONAL BURNING, STINGING, AND SORENESS. REQUESTS TO TAKE MOTRIN AND NORCO TOGETHER. GIVEN PER ORDER AND REQUEST. PT'S MOTHER AT BEDSIDE NOW RESTING ON COUCH. PT DENIES ADDITIONAL NEEDS. BED IN LOW POSITION WITH UPPER SIDE RAILS RAISED X2. CL AND PHONE WITHIN REACH. PT TALKING ON CELL PHONE WHEN RN LEFT ROOM. WILL CONT TO MONITOR AND ASSIST PRN.
--- NOTE | 2016-12-07 03:30 | NUR ---
PAIN REASSESSMENT COMPLETED. PT RESTING WITH EYES CLOSED IN SEMI FOWLERS POSITION ON BACK. RESPIRATIONS REGULAR AND UNLABORED, NO S/S OF DISTRESS NOTED. PT'S MOTHER REMAIN IN ROOM RESTING ON COUCH. BED IN LOW POSITION WITH UPPER SIDE RAILS RAISED X2. CL AND PHONE WITHIN REACH. WILL CONT TO MONITOR AND ASSIST PRN.
--- NOTE | 2016-12-07 05:03 | NUR ---
BEDSIDE ROUNDS MADE. PT IN SEMI FOWLERS POSITION TILTED TO RIGHT SIDE RESTING WITH EYES CLOSED. RESPIRATIONS REGULAR AND UNLABORED, NO S/S OF DISTRESS NOTED. BED IN LOW POSITION WITH UPPER SIDE RAILS RAISED X2. CL AND PHONE WITHIN REACH. WILL CONT TO MONITOR AND ASSIST PRN.
[2016-12-07 05:25] LABS: BASOPHILS 0.1 % (0-2); EOSINOPHILS 0.5 % (0-7); HEMATOCRIT 26.4 % (36.0-48.0); HEMOGLOBIN 8.7 g/dL (12-16); IMMATURE GRANULOCYTES 0.3 % (0-5); LYMPHOCYTES 8.8 % (15-50); MCH 27.6 pg (26.0-34.0); MCV 83.8 fL (80.0-100.0); MEAN PLATELET VOLUME 11.9 fL (7.4-10.4); NEUTROPHILS 85.3 % (40-80); PLATELET COUNT 136 10x3/uL (130-400); RBC 3.15 10x6/uL (4.00-5.40); RDW 14.9 % (11.5-14.5); WBC 15.3 10x3/uL (4.8-10.8)
[2016-12-07] MEDS ORDERED: CYCLOBENZAPRINE10 MG PO (05:39)
[2016-12-07 05:40] VITALS: BP 136/69; Ht 165.1 cm; Wt 86.2 kg
--- NOTE | 2016-12-07 05:40 | NUR ---
V/S CHARTED AT 0540 CHARTED ON WRONG PT BY RN.
[2016-12-07 06:18] VITALS: BP 114/58
--- NOTE | 2016-12-07 06:18 | NUR ---
RN TO BEDSIDE. VSS. FUNDUS FIRM, U2 SMALL AMT RUBRA LOCHIA, NO CLOTS. PAIN 4-5/10, DENIES NEED FOR INTERVENTION AT THIS TIME. PT STATES THAT SHE WANTS TO REST AT THIS TIME AND DECLINES TO GET UP AND AMBULATE. PT'S MOTHER REMAINS ON COUCH AT BEDSIDE. BED IN LOW POSITION WITH UPPER SIDE RAILS RAISED X2. CL AND PHONE WITHIN REACH. WILL CONT TO MONITOR AND ASSIST PRN.
--- NOTE | 2016-12-07 07:12 | NUR ---
Orders received to infuse 1unit rbc that is on hold.
--- NOTE | 2016-12-07 08:20 | NUR ---
Dr Villanueva called to room to restart IV after unsuccessful attempts made by this rn and Padmini Gaffney RN. Pt tolerates well, IV to right wrist with [address] Villanueva, flushed easily. PRBC started at 100ml/hr, vital signs as charted. Pt talking with family at bedside.
--- NOTE | 2016-12-07 08:45 | NUR ---
Denies discomfort at this time. Rate for PRBC increased to 200ml/hr, vital signs as charted. Pt feeding infant at this time and denies any needs.
--- NOTE | 2016-12-07 10:13 | NUR ---
Pain med given as charted on emar for pt complaint of burning at incision site and abd. cramps. encouraged her to sit up more in bed as much as she could tolerate to help decrease dizziness when she gets up to ambulate. in crib at bedside, family/friends at bedside.
--- NOTE | 2016-12-07 11:07 | NUR ---
Infant taken to nursery per pt request, she states that she wants to take a nap. Rates pain at 5/10. friends remain at bedside, lights turned out per pt request.
--- NOTE | 2016-12-07 11:30 | NUR ---
RBC infusion completed and tubing flushed with NS. Pt states that she is "not so sleepy now" but denies need to get up to bathroom. Side rails up x 2 with phone and call light in reach.
--- NOTE | 2016-12-07 11:37 | NUR ---
Encouraged pt to get up to bathroom but she says she will call when ready. Lights turned out per her request. Side rails up x 2 with phone and call light in reach.
--- NOTE | 2016-12-07 12:30 | NUR ---
Called to room, upon entering room pt is sitting up on side of bed without complaint of dizziness or nausea. Amb to bathroom per herself, ask to take a shower. Towels provided and pt states understanding of how to call nurse while in the shower, Pt family member remains in room with infant in crib.
--- NOTE | 2016-12-07 13:45 | NUR ---
PT dressed and denies needs, explained that nursery would do discharge and afterwards would go over her instructions. States understanding.
[2016-12-07] MEDS ORDERED: HYDROCODONE-APA1 TAB PO (14:31)
[2016-12-07] MEDS ORDERED: IBUPROFEN600 MG PO (14:32)
--- NOTE | 2016-12-07 15:30 | NUR ---
Verbal and written discharge instructions gone over with written scripts given to pt for [place] 10/325mg and Motrin 600mg. She voices her understanding to all info received and denies any questions or concerns. Will call when she is ready for wheelchair.
--- NOTE | 2016-12-07 15:55 | NUR ---
pt taken out to car by wheelchair with infant in carrier. Home by private car with family.
== END 2016-12-07 16:08 | disposition home or self-care (01) | DRG 765 ==
LOC: D.LD 05:07
PROVIDERS: ADMIT Obstetrics & Gynecology
PROC: 10907ZC Drainage of Amniotic Fluid, Therapeutic from Products of Conception, Via Natural or Artificial Opening (ICD-10-PCS; 2016-12-05)
PROC: 10D00Z1 Extraction of Products of Conception, Low, Open Approach (ICD-10-PCS; principal; 2016-12-05 14:00)
DX: O76 Abnormality in fetal heart rate and rhythm complicating labor and delivery (principal); O98.32 Other infections with a predominantly sexual mode of transmission complicating childbirth; Z3A.40 40 weeks gestation of pregnancy; Z37.0 Single live birth; O36.8930 Maternal care for other specified fetal problems, third trimester, not applicable or unspecified; A56.8 Sexually transmitted chlamydial infection of other sites; O69.81X0 Labor and delivery complicated by cord around neck, without compression, not applicable or unspecified; O32.8XX0 Maternal care for other malpresentation of fetus, not applicable or unspecified

== ENCOUNTER 2017-10-15 17:24 | Emergency (ER) | payer OTHER ==
[~2017-10-15] VITALS: Ht 165.1 cm; Wt 81.8 kg
[~2017-10-15 17:24] MED LIST changes: +CYCLOBENZAPRINE10 MG PO; +HYDROCODONE-APA1 TAB PO
[2017-10-15 17:30] VITALS: Ht 165.1 cm; Wt 81.8 kg
[2017-10-15 18:45] LABS: APPEARANCE CLEAR (CLEAR); BACTERIA NONE SEEN /hpf (NONE SEEN); BILIRUBIN NEGATIVE (NEGATIVE); COLOR YELLOW (YELLOW); EPITHELIAL CELLS 0-5 /hpf (0-5); GLUCOSE NEGATIVE (NEGATIVE); HCG URINE NEGATIVE (NEGATIVE); KETONE SMALL mg/dL (NEGATIVE); NITRITE NEGATIVE (NEGATIVE); PROTEIN NEGATIVE (NEGATIVE); RED CELLS - URINE 0-5 /hpf (0-5); SPECIFIC GRAVITY 1.015 (1.005-1.020); WHITE CELLS - URINE NSEEN /hpf (0-5)
[2017-10-15 22:34] VITALS: BP 132/71
== END 2017-10-15 22:35 | disposition home or self-care (01) ==
LOC: D.ER 17:24
PROVIDERS: Family Medicine
DX: N83.202 Unspecified ovarian cyst, left side (principal)

== ENCOUNTER 2018-03-02 13:25 | Emergency (ER) | payer OTHER ==
[~2018-03-02] VITALS: Ht 165.1 cm; Wt 84.1 kg
[2018-03-02 13:27] VITALS: Ht 165.1 cm; Wt 84.1 kg
[2018-03-02 14:28] LABS: APPEARANCE HAZY (CLEAR); BILIRUBIN NEGATIVE (NEGATIVE); COLOR YELLOW (YELLOW); GLUCOSE NEGATIVE (NEGATIVE); KETONE NEGATIVE (NEGATIVE); NITRITE NEGATIVE (NEGATIVE); PROTEIN NEGATIVE (NEGATIVE); SPECIFIC GRAVITY 1.015 (1.005-1.020); UROBILINOGEN NORMAL (NORMAL)
[2018-03-02 14:30] LABS: BACTERIA FEW /hpf (NONE SEEN); EPITHELIAL CELLS 0-5 /hpf (0-5)
[2018-03-02 14:31] LABS: HCG URINE NEGATIVE (NEGATIVE)
[2018-03-02] MEDS ORDERED: CIPRO250 MG PO (14:39)
[2018-03-02 14:58] VITALS: BP 121/64
== END 2018-03-02 14:59 | disposition home or self-care (01) ==
LOC: D.ER 13:25
PROVIDERS: Family Medicine
DX: N39.0 Urinary tract infection, site not specified (principal)

== ENCOUNTER 2019-12-09 23:10 | Emergency (ER) | payer OTHER ==
[~2019-12-09] VITALS: Ht 165.1 cm; Wt 81.8 kg
[~2019-12-09 23:10] MED LIST changes: +CIPRO250 MG PO
[2019-12-09 23:20] VITALS: Ht 165.1 cm; Wt 81.8 kg
[2019-12-09 23:43] LABS: BILIRUBIN NEGATIVE (NEGATIVE); HCG URINE POSITIVE (NEGATIVE); KETONE NEGATIVE (NEGATIVE); NITRITE NEGATIVE (NEGATIVE); UROBILINOGEN NORMAL (NORMAL)
[2019-12-09 23:50] LABS: HEMATOCRIT 34.8 % (36.0-48.0); HEMOGLOBIN 11.7 g/dL (12-16); LYMPHOCYTES 19.5 % (15-50); MCHC 33.6 g/dL (31.0-37.0); MCV 86.1 fL (80.0-100.0); NEUTROPHILS 74.2 % (40-80); RBC 4.04 10x6/uL (4.00-5.40); RDW 15.1 % (11.5-14.5)
[2019-12-09 23:51] LABS: PLATELET COUNT 213 10x3/uL (130-400)
[2019-12-09 23:55] LABS: CALC OSMOLALITY 260 mosm/kg (275-300); CALCIUM 8.7 mg/dL (8.5-10.1); CARBON DIOXIDE 24.9 mmol/L (21.0-32.0); CHLORIDE - SERUM 101 mmol/L (98-107); CREATININE - SERUM 0.8 mg/dL (0.6-1.3); GLUCOSE 90 mg/dL (74-106); POTASSIUM - SERUM 3.6 mmol/L (3.5-5.1); SODIUM 131 mmol/L (136-145); UREA NITROGEN 7 mg/dL (7-18); eGFR NON AFRICAN AMERICAN > 90 mL/min (90-120)
[2019-12-10 00:23] LABS: ALBUMIN 3.8 g/dL (3.4-5.0); ALKALINE PHOSPHATASE 69 U/L (30-120); ALT (SGPT) 11 U/L (10-68); HCG - QUANTITATIVE (MATERNAL) 97911 mIU/mL; PROTEIN - SERUM 7.9 g/dL (6.4-8.2)
[2019-12-10] MEDS ORDERED: PENICILLIN V P500 MG PO (00:46)
[2019-12-10 01:15] VITALS: BP 124/75
== END 2019-12-10 01:16 | disposition home or self-care (01) ==
LOC: D.ER 23:10
PROVIDERS: Family Medicine
DX: O99.019 Anemia complicating pregnancy, unspecified trimester (principal); K08.89 Other specified disorders of teeth and supporting structures; E87.1 Hypo-osmolality and hyponatremia; Z3A.00 Weeks of gestation of pregnancy not specified

== ENCOUNTER 2019-12-15 20:32 | Emergency (ER) | payer OTHER ==
[~2019-12-15] VITALS: Ht 165.1 cm; Wt 81.8 kg
[~2019-12-15 20:32] MED LIST changes: +PENICILLIN V P500 MG PO
[2019-12-15 20:35] VITALS: Ht 165.1 cm; Wt 81.8 kg
[2019-12-15] MEDS ORDERED: AMOXICILLIN875 MG PO (20:38)
[2019-12-15] MEDS ORDERED: HYDROCODON-ACE1 EAC7 PO (20:58)
[2019-12-15 21:40] VITALS: BP 138/83
== END 2019-12-15 21:40 | disposition home or self-care (01) ==
LOC: D.ER 20:32
DX: O26.899 Other specified pregnancy related conditions, unspecified trimester (principal); Z3A.00 Weeks of gestation of pregnancy not specified; K04.7 Periapical abscess without sinus; K08.89 Other specified disorders of teeth and supporting structures

== ENCOUNTER 2019-12-16 20:05 | Inpatient (IN) | payer OTHER ==
[~2019-12-16] VITALS: Ht 165.1 cm; Wt 56.8 kg
[~2019-12-16 20:05] MED LIST changes: +AMOXICILLIN875 MG PO; +HYDROCODON-ACE1 EAC7 PO
[2019-12-16 20:19] VITALS: Ht 165.1 cm; Wt 56.8 kg
[2019-12-16 20:59] LABS: BASOPHILS 0.4 % (0-2); EOSINOPHILS 0.4 % (0-7); HEMATOCRIT 36.3 % (36.0-48.0); HEMOGLOBIN 12.1 g/dL (12-16); IMMATURE GRANULOCYTES 0.1 % (0-5); LYMPHOCYTES 20.1 % (15-50); MCH 28.8 pg (26.0-34.0); MCHC 33.3 g/dL (31.0-37.0); MCV 86.4 fL (80.0-100.0); MEAN PLATELET VOLUME 10.8 fL (7.4-10.4); MONOCYTES 6.1 % (2-11); NEUTROPHILS 72.9 % (40-80); PLATELET COUNT 236 10x3/uL (130-400); RDW 14.7 % (11.5-14.5); WBC 7.3 10x3/uL (4.8-10.8)
[2019-12-16 21:16] LABS: CALC OSMOLALITY 263 mosm/kg (275-300); CALCIUM 8.4 mg/dL (8.5-10.1); CARBON DIOXIDE 24.1 mmol/L (21.0-32.0); CHLORIDE - SERUM 101 mmol/L (98-107); CREATININE - SERUM 0.8 mg/dL (0.6-1.3); GLUCOSE 98 mg/dL (74-106); POTASSIUM - SERUM 3.7 mmol/L (3.5-5.1); SODIUM 133 mmol/L (136-145); UREA NITROGEN 7 mg/dL (7-18); eGFR NON AFRICAN AMERICAN > 90 mL/min (90-120)
[2019-12-16 21:45] LABS: ALBUMIN 3.3 g/dL (3.4-5.0); ALKALINE PHOSPHATASE 70 U/L (30-120); ALT (SGPT) 17 U/L (10-68); BILIRUBIN - TOTAL 0.31 mg/dL (0.2-1.3); C-REACTIVE PROTEIN 7.1 mg/dL (0.0-0.9); HCG - QUANTITATIVE (MATERNAL) 139338 mIU/mL; PROTEIN - SERUM 6.9 g/dL (6.4-8.2)
[2019-12-16 23:32] LABS: BILIRUBIN NEGATIVE (NEGATIVE); KETONE NEGATIVE (NEGATIVE); NITRITE NEGATIVE (NEGATIVE); UROBILINOGEN NORMAL (NORMAL)
[2019-12-16 23:34] LABS: BACTERIA MODERATE /hpf (NONE SEEN); EPITHELIAL CELLS 0-5 /hpf (0-5); RED CELLS - URINE NONE SEEN /hpf (0-5); WHITE CELLS - URINE 0-5 /hpf (0-5)
--- NOTE | 2019-12-17 00:40 | NUR ---
call to dr nunez, report given regarding pt c/o pain rating "8". orders rec'd for pain med
--- NOTE | 2019-12-17 01:49 | NUR ---
iv unasyn started via pump, iv site 20 g left wrist wnl, no discomfort or pain noted w/ infusing
--- NOTE | 2019-12-17 02:36 | NUR ---
pt resting quietly w/o signs of distress, did not disturb
--- NOTE | 2019-12-17 04:00 | NUR ---
dr nunez at bs, discussing poc with pt, performing hand held us, verified fetus in uterus w/ beating heart
--- NOTE | 2019-12-17 16:49 | MORECARE ---
CASE MANAGEMENT DISCHARGE SUMMARY PATIENT: SATHYA BUITRAGO UNIT: [id number] ADM DATE: 12/16/19 AGE: 24 : [birth year] SEX: F ROOM/BED: D.1278 AUTHOR: LENNOX GOLDMAN PHYSICIAN: REFERRING PHYSICIAN: DAMON FARRIS MD DATE OF SERVICE: 12/17/19 Discharge Plan Patient Name: SATHYA BUITRAGO Facility: [facility]:[place] : 1995 Planned Disposition: Home Anticipated Discharge Date: Discharge Date: Expected LOS: Initial Reviewer: [email or web address] Initial Review Date: 12/17/2019 Generated: 12/17/19 5:49 pm Patient Name: SATHYA BUITRAGO Page 37735 at 0763 All edits/amendments must be made on the electronic document DICTATION DATE: 12/17/191648 MANUFACTURING SUPERVISOR 2ND SHIFT: ARNIE 12/17/191648 RPT#: [id number] DC DATE: STATUS: ADM IN [facility] [address] [place] [address] END OF REPORT
[2019-12-17 19:30] VITALS: BP 116/72
--- NOTE | 2019-12-17 19:45 | NUR ---
PT IN HER ROOM RESTING QUIETLY. SHE WAS INFORMED THAT SHE WOULD BE MOVED TO A ROOM ON THE WOMEN'S SIDE. SHE SAID OK. SHE AGREED. PT HAS A TOOTH ON THE LEFT SIDE THAT IS ABSCESSED. SHE IS ON UNASYN 3 GM IV. PATIENT STATES THAT HER FACE IS HURTING A LITTLE BUT DID NOT ASKE FOR PAIN MEDS. THERE IS MUCH EDEMA ON THE LEFT SIDE OF THE FACE. IV SITEIS THE LEFT WRIST 2O GUAGE AT 3OML/HR. SHE HAS HAD NO ELEVATED TEMP TODAY SO FAR. SHE IS TO HAVE A CBC IN THE MORNING. HER SKIN IS WARM AND DRY. IV SITE LOOKS GREAT. INFUSING WELL AT THIS TIME.
--- NOTE | 2019-12-17 20:00 | NUR ---
WENT IN TO TAKE SOME OF PT THINGS TO HER. SHE IS SITTING UP IN THE MIDDLE OF THE BED ON HER PHONE. SHE SAYS THAT THE ROOM IS STUFFY AND SHE CAN'T STAY IN THE ROOM. I DIDN'T THINK THE ROOM WAS STUFFY AT ALL. SHE STARTS TALKING ABOUT GOING HOME. I EXPLAINED THAT SHE NEEDED THE IV ANTIBIOTICS FOR HER ABSCESS. SHE SAID SHE HAD PILLS AT HOME AND THAT WOULD BE ENOUGH. I TOLD HER THE PILL DID NOT WORK WELL THE IV MEDICATION.
--- NOTE | 2019-12-17 21:30 | NUR ---
TOOK PT SOME ICE WATER. SHE IS NOW TALKING ABOUT LEAVING AMA. I EXPLAINED AGAIN THE IMPORTANCE OF HER IV ANTIBIOTICS. SHE SAID SHE THOUGHT SHE'D BE FINE. I TOLD MY CHARGE NURSE, DAMON ABOUT THIS AND DR. POE WAS THERE. THE THREE OF US WENT TO TALK TO THE PT. DR POE EXPLAINED TO HER AGAIN THE IMPORTANCE OF IV ANTIBIOTICS, THE POSSIBILITY OF IF ABSCESS WASN'T TAKEN CARE OF. WE TOLD THE PT SHE COULD PICK ANOTHER ROOM AVAILABLE ON THE FLOOR. I TOOK HER TO THE TWO ROOMS AVAILABLE AND SHE DIDN'T EVEN LOOK AT THEM; SHE SAID SHE DIDN'T WANT TO BE ON THE WOMEN'S SIDE. DUE TO THE FACT THAT L AND D HAD PT IN MOST OF THE ROOMS, THERE WAS NOT A ROOM THERE. I CALLED THE WAREHOUSE TRAINER TO SEE IF THERE WAS A BED ON MED SURG. PT DECIDED TO GO AMA ONCE AGAIN AND DR. POE TALKED TO HER AGAIN TELLING HER SHE COULD NOT LEAVE. WE SHOWED PT THE TUB ROOM AND I TOOK HER OVER TO SEE IT. AFTER LOOKING AROUND, SHE DECIDED NICHOLAS MAY STAY THERE.
--- NOTE | 2019-12-17 22:35 | NUR ---
PT IS NOW IN THE TUB ROOM. HER THINGS WERE TAKEN TO HER. ALL THIS TIME SHE IS SITTING ON THE COUCH ON HER PHONE. SHE GOT IN BED AND STILL ON HER PHONE.
--- NOTE | 2019-12-17 23:05 | NUR ---
NORCO 5 MG GIVEN PO. BENADRYL 25 MG WAS GIVEN PO FOR SLEEP PER DR. POE'S ORDER. SHE WAS BROUGHT A NEW MUG OF ICE WATER TO TAKE THE MEDS. FACE IS STILL SWOLLEN.
--- NOTE | 2019-12-17 23:30 | NUR ---
PT CALLED ME TO HER ROOM. SHE STATES HER IV VELASCO. I TURNED IN OFF. THERE WAS NO BLOOD RETURN AND UNABLE TO FLUSH THE LINE. THE SITE WAS A LITTLE PUFFY. I INFORMED DAMON SAM, MY CHARGE NURSE WHO SAIS SHE WOULD RESTART.
--- NOTE | 2019-12-18 00:15 | NUR ---
PT ASKED IF SHE COULD HAVE A SNACK. I NAMED THEM ALL OFF FOR HER. NOTHING SEEMED TO SATISFY HER. SHE FINALLY ASKED FOR JUICE AND MARLYS CRACKERS. APPLE JUICE AND MARLYS CRACKERS SERVED TO PT.
--- NOTE | 2019-12-18 01:25 | NUR ---
PT HAS A NEW IV IN THE RIGHT WRIST. 18 G FOR HER ANTIBIOTICS. THIS WAS STARTED BY MARIELENA JOSE
--- NOTE | 2019-12-18 01:25 | NUR ---
IV NOTED TO BE INFILTRATED, IV DC'D AT THIS TIME. NEW IV STARTED, 18 GAUGE TO RIGHT WRIST AND IV FLUIDS RESTARTED AT 30ML/HR. PT TOLERATED WELL.
--- NOTE | 2019-12-18 02:45 | NUR ---
SIENNA IV ANTIBIOTIC. PT IS SLEEPING. NO C/O FOR NOW NO NEDS FOR NOW
--- NOTE | 2019-12-18 05:42 | NUR ---
PT C/O PAIN. PAIN MED GIVEN PO
--- NOTE | 2019-12-18 05:45 | NUR ---
PT C/O OF PAIN RATING IT A 10
--- NOTE | 2019-12-18 06:45 | NUR ---
PT RESTING QUIETLY IN ROOM NO C/O OR NEEDS
--- NOTE | 2019-12-18 07:00 | NUR ---
REPORT RECEIVED FROM Marylou ENNIS RN.
[2019-12-18 07:51] LABS: BASOPHILS 0.4 % (0-2); EOSINOPHILS 1.4 % (0-7); HEMATOCRIT 30.4 % (36.0-48.0); LYMPHOCYTES 27.6 % (15-50); MCH 28.2 pg (26.0-34.0); MCHC 32.9 g/dL (31.0-37.0); MCV 85.9 fL (80.0-100.0); MEAN PLATELET VOLUME 10.8 fL (7.4-10.4); MONOCYTES 5.2 % (2-11); NEUTROPHILS 65.4 % (40-80); PLATELET COUNT 201 10x3/uL (130-400); RBC 3.54 10x6/uL (4.00-5.40); RDW 14.6 % (11.5-14.5)
--- NOTE | 2019-12-18 08:20 | NUR ---
DR. FARRIS ON UNTI TO SEE PT. ORDERS RECEIVED TO D/C HOME AFTER 1445 DOSE OF ANTIBIOTICS. PRESCRIPTIONS RECEIVED.
[2019-12-18 08:30] VITALS: BP 113/61
--- NOTE | 2019-12-18 08:30 | NUR ---
TO ROOM FOR ASSESSMENT. PT.SLEEPING, LIGHTS LOW. LIGHTS TURNED ON LOW, PT AWAKENS EASILY TO NAME. NO C/O PAIN AT THIS TIME. ASSESSMENT COMPLETED. SEE FLOWSHEET.
--- NOTE | 2019-12-18 09:40 | NUR ---
CHANEY CATHETER D/C'D. 175CC CONCENTRATED URINE EMPTIED FROM BAG. IV IN LEFT HAND SALINE LOCKED. PO PAIN MED GIVEN. PT AWAKE, ALERT WITHOUT SIGNS OF RESPIRATORY DISTRESS. BABY AT BEDSIDE IN OPEN CRIB. NO OTHER NEEDS OR CONCERNS VOICED AT THIS TIME.
--- NOTE | 2019-12-18 10:30 | NUR ---
PT RESTING WITH EYES CLOSED; LIGHTS LOW. NO NEEDS VOICED AT THIS TIME.
--- NOTE | 2019-12-18 11:31 | NUR ---
ROUNDS MADE. PT RESTING IN BED. OFFERED SHOWER; PT DECLINES AT THIS TIME. OFFERED PAIN MEDICATION. PT DENIES PAIN AT THIS TIME. NO NEEDS OR CONCERNS VOICED AT THIS TIME.
[2019-12-18] MEDS ORDERED: HYDROCODON-ACE1 EAC7 PO (11:38)
[2019-12-18] MEDS ORDERED: AUGMENTIN 875-11 TAB PO (11:39)
[2019-12-18] MEDS ORDERED: PHENERGAN25 M1 PO (11:39)
--- NOTE | 2019-12-18 14:28 | NUR ---
REVIEWED DISHARGE INSTRUCTIONS WITH PT. STATES UNDERSTANDING. PRESCRIPTIONS GIVEN.
--- NOTE | 2019-12-18 15:15 | NUR ---
IV D/C'D. CATHETER INTACT. PT DISCHARGED HOME AMBULATORY TO PRIVATE VEHICLE.
--- NOTE | 2019-12-19 09:24 | MORECARE ---
CASE MANAGEMENT DISCHARGE SUMMARY PATIENT: SATHYA BUITRAGO UNIT: [id number] ADM DATE: 12/16/19 AGE: 24 : [birth year] SEX: F ROOM/BED: D.1257 AUTHOR: LENNOX GOLDMAN PHYSICIAN: REFERRING PHYSICIAN: DAMON FARRIS MD DATE OF SERVICE: 12/19/19 Discharge Plan Patient Name: SATHYA BUITRAGO [facility] [facility] 1995 Planned Disposition: Home Anticipated Discharge Date: Discharge Date: 12/18/2019 Expected LOS: Initial Reviewer: [email or web address] Initial Review Date: 12/17/2019 Generated: 12/19/19 10:23 am Last DP export: 12/17/19 3:49 pm Patient Name: SATHYA BUITRAGO Page 33591 at 0924 All edits/amendments must be made on the electronic document DICTATION DATE: 12/19/19922 HEALTH AND SAFETY DIRECTOR: ARNIE 12/19/19922 RPT#: [id number] DC DATE:12/18/19 STATUS: DIS IN [facility] [address] [place] [address] END OF REPORT
== END 2019-12-18 15:19 | disposition home or self-care (01) | DRG 833 ==
LOC: D.ER 20:05 → D.LD 23:53 → D.WS 12-17 21:21 → D.LD 12-18 07:12
PROVIDERS: Family Medicine; ADMIT Obstetrics & Gynecology; ATTEND Obstetrics & Gynecology
DX: O26.891 Other specified pregnancy related conditions, first trimester (principal); K04.7 Periapical abscess without sinus

== ENCOUNTER 2020-06-23 14:23 | Inpatient (IN) | payer OTHER ==
[~2020-06-23] VITALS: Ht 152.4 cm; Wt 94.3 kg
--- NOTE | ~2020-06-23 | OP ---
PATIENT NAME: SATHYA BUITRAGO MEDICAL RECORD: [id number] :[birth year] LOCATION:MINAL D.1274 ADMISSION DATE:07/17/20 SURGEON: MAGEN DEVLIN MD DATE OF OPERATION: 07/17/2020 PREOPERATIVE DIAGNOSES: 1. History of previous section at 39 weeks. 2. The patient desires permanent sterility. POSTOPERATIVE DIAGNOSES: 1. History of previous section at 39 weeks. 2. The patient desires permanent sterility. PROCEDURE PERFORMED: Repeat low transverse section and tubal ligation via modified Uchida procedure. SURGEON: Dr. Magen Devlin. ANESTHESIA: Regional via spinal. IV FLUIDS: Per anesthesia record. ESTIMATED BLOOD LOSS: 1000 cc. SPECIMENS: Included placenta, cord for gases, and bilateral tubal segments. COMPLICATIONS: None apparent. FINDINGS: 1. Viable male , Apgars 9 at one and 9 at five. 2. Placenta delivered manually intact, 3-vessel cord noted. 3. Normal adnexa bilaterally. PROCEDURE: The patient was taken to the operating room where regional anesthesia was achieved without difficulty. The patient was then prepped and draped in normal sterile fashion in the dorsal supine position. SCDs were on and functioning normally. A Turner catheter in place and was draining freely. Following prep and drape, a repeat Pfannenstiel skin incision was made and extended down to the underlying subcutaneous fat to the level of the fascia. The fascia was then excised in the midline with the scalpel and extended bilaterally using the Herrera scissors. The superior and inferior aspect of the fascial incision was then grasped with Rob clamps times 2, tented upward, and sharply dissected from the underlying rectus muscle using the Bovie cautery and the Herrera scissors. Rectus muscles were then bluntly in the midline and the peritoneum entered sharply at the superior aspect of the incision. The anterior peritoneum was then dissected downward and laterally using the Metzenbaum scissors under direct visualization of the bladder. A bladder blade was placed into the pelvis and the bladder flap was created by excising the anterior leaf of the broad ligament across the lower uterine segment. This was then further developed digitally. A low transverse incision was made on the uterus with a scalpel and extended via the Pelosi method. The vertex was delivered atraumatically followed by the body. was bulb suctioned upon delivery. Cord was clamped times 2, cut and the was handed to the awaiting nursery team. Cord was then obtained for gases and placenta was removed manually and intact. The uterus was exteriorized, cleared of all clots OPERATIVE REPORT [id number] MINNA,SATHYA and debris and vigorously massaged and good uterine tone was noted. Uterine incision was repaired with 0 Vicryl in a running locked fashion times 2 with good hemostasis noted. Attention was then turned to the posterior cul-de-sac, which was thoroughly irrigated and lap sponge was used to remove small amounts of blood in the posterior cul-de-sac. Attention was then turned to the bilateral fallopian tubes, which were grasped with Bola clamps in the midsection and avascular portion of the mesosalpinx. The Bovie cautery was used to make a defect in the mesosalpinx and two curved Windy clamps were placed across approximately 2-3 cm of the midsection of the tube. This was performed bilaterally. This midsection of tube was then excised using the Metzenbaum scissors and 2-0 Vicryl sutures were then used to anchor the tubal stumps both distally and medially. This was performed bilaterally. Good hemostasis was noted from all 4 tubal cut sites and the uterus was replaced into the pelvis. The anterior cul-de-sac was then thoroughly irrigated and the uterine incision was found to be hemostatic. Counts were correct times 2 for needles, sponges, and instruments. The fascia was repaired with 0 loop PDS times 1 and the skin repaired with abhishek. The patient tolerated the procedure well and was transported to postanesthesia recovery stable without incident. TRANSINT:[id number] Voice Confirmation ID: [id number] DOCUMENT ID: [id number] MAGEN DEVLIN MD CC: [id number] DICTATION DATE: 07/30/20 162 DEVELOPER SUPPORT ENGINEER: 07/30/202207 DIS IN 07/19/20 [id number] [place] [address]
[~2020-06-23 14:23] MED LIST changes: +AUGMENTIN 875-11 TAB PO; +PHENERGAN25 M1 PO
[2020-07-17] VITALS (9 sets, daily range): BP systolic 116–132; BP diastolic 56–79; Ht 152.4 cm; Wt 94.3 kg
[2020-07-17 08:44] LABS: BASOPHILS 0.1 % (0-2); EOSINOPHILS 0.6 % (0-7); HEMATOCRIT 29.6 % (36.0-48.0); HEMOGLOBIN 9.4 g/dL (12-16); IMMATURE GRANULOCYTES 0.4 % (0-5); LYMPHOCYTE ABS# 1.38 10x3/uL (1.18-3.74); LYMPHOCYTES 20.6 % (15-50); MCH 26.3 pg (26.0-34.0); MCHC 31.8 g/dL (31.0-37.0); MCV 82.7 fL (80.0-100.0); MEAN PLATELET VOLUME 11.4 fL (7.4-10.4); MONOCYTES 6.6 % (2-11); NEUTROPHIL ABS# 4.81 10x3/uL (1.56-6.13); NEUTROPHILS 71.7 % (40-80); PLATELET COUNT 189 10x3/uL (130-400); RBC 3.58 10x6/uL (4.00-5.40); RDW 14.2 % (11.5-14.5); WBC 6.7 10x3/uL (4.8-10.8)
[2020-07-17 08:55] LABS: UDS - AMPHET NEGATIVE QUAL (NEGATIVE); UDS - BARB NEGATIVE QUAL (NEGATIVE); UDS - BENZO NEGATIVE QUAL (NEGATIVE); UDS - COCAINE NEGATIVE QUAL (NEGATIVE); UDS - OPIATE NEGATIVE QUAL (NEGATIVE); UDS - PCP NEGATIVE QUAL (NEGATIVE); UDS - THC POSITIVE QUAL (NEGATIVE)
--- NOTE | 2020-07-17 12:15 | NUR ---
ASSUMED CARE OF PT AT THIS TIME. REC'D PT AA&O X 4 POSTOP REPEAT W/BILATERAL TUBAL LIGATION. BREATH SOUNDS CL/=, ABD SOFT, NON DISTENDED, FUNDUS FIRM,U/1, MIDLINE. SMALL RUBRA LOCHIA NOTED. NO BLOOD CLOTS EXPRESSED W/MASSAGE. CURRENT LILLY PAD NOT CHANGED AT THIS TIME. PT HAS A PIV TO RT FOREARM W/EXISTING LINE OF PITOCIN 20UNITS INFUSING AT SLOW RATE OFF THE PUMP. CHANEY CATH IN PLACE DRAINING VIA GRAVITY AT BEDSIDE. APPROX 40ML NOTED IN UROMETER. SCD WRAPS ON BILATERALLY. CONNECTED TO PUMP. PUMP ON AND FUNCTIONING. RECOVERY NURSE REMAINS AT BEDSIDE TO INITIATE ASSISTANT EDITOR. TORADOL GIVEN PER RECOVERY NURSE. SEE EMAR.
--- NOTE | 2020-07-17 12:30 | NUR ---
FUNDUS FIRM,U/1, SMALL LOCHIA NOTED. NO CLOTS EXPRESSED W/MASSAGE.
--- NOTE | 2020-07-17 12:45 | NUR ---
RN TO PT'S BEDSIDE. PITOCIN NOTED TO NOT HAVE BEEN PLACED ON PUMP AND IS NOT INFUSING. PITOCIN PLACED ON PUMP AT THIS TIME TO INFUSE AT 125ML/HR. FUNDUS BOGGY, BUT FIRMS W/MASSAGE. MIDLINE. SCANT TO SMALL LOCHIA W/ONE SMALL CLOT NOTED. PERIPAD CHANGED. PT CURRENTLY HOLD BABY. ICE WATER SERVED.
--- NOTE | 2020-07-17 13:00 | NUR ---
FUNDUS FIRM,U/1, SMALL LOCHIA NOTED. NO PERIPAD CHANGE AT THIS TIME.
--- NOTE | 2020-07-17 13:30 | NUR ---
RN TO BEDSIDE. PT AWAKE AND ALERT. PAIN ASSESSED. PT REPORTS SHE HAS BEEN PUSHING HER AGRISCIENCE INSTRUCTOR BUTTON, BUT STILL RATES HER PAIN 8/10. PT INFORMED DR FARRIS WILL BE NOTIFIED. PT T/C/D. CHUX CHANGED. FUNDUS FIRM,U/1,SMALL LOHIA W/SMALL LOCHIA NOTED. PERICARE DONE. CLEAN PAD PLACED. CLEAN GOWN PLACED ON PT. ICE PACK TO ABD. SPLIT PILLOW PROVIDED. I.S. EDUCATION GIVEN. PT PERFORMS I.S. X 3. ABLE TO PULL 1100. GOAL OF 1999 DISCUSSED. COUGHS W/POOR EFFORT. EDUCATION PROVIDED.PT DENIES FURTHER NEEDS AT THIS TIME. BED LOW, SIDE RAILS UP X 2. CALL LIGHT AND AGRISCIENCE INSTRUCTOR BUTTON AT PT'S SIDE.
--- NOTE | 2020-07-17 13:44 | NUR ---
DR FARRIS ON THE UNIT AT THIS TIME. REPORT GIVEN OF PT'S C/O PAIN EVEN THOUGH SHE'S HAD TORADOL AND HAS BEEN USING HER SUPERVISOR KEYMODULE ASSEMBLY BUTTON.ORDERS REC'D TO INCREASE RATE TO 0.3ML/HR X 2HRS.
--- NOTE | 2020-07-17 14:00 | NUR ---
RN TO BEDSIDE. CERTIFIED ADAPTIVE PHYSICAL EDUCATOR DOSE INCREASED TO 0.3MG Q 10MINS. PER MD ORDER. FUNDUS FIRM,U/1, SMALL LOCHIA NOTED. NO PERIPAD CHANGE AT THIS TIME. APPROX 110ML URINE NOTED IN UROMETER AND DUMPED. PT DENIES NEEDS. PLANS TO REST NOW. CALL LIGHT AND CERTIFIED ADAPTIVE PHYSICAL EDUCATOR BUTTON AT PT'S SIDE.
--- NOTE | 2020-07-17 15:00 | NUR ---
RN TO BEDSIDE. PT RESTING QUIETLY IN SUPINE POSITION.OPENS EYES SPONTANEOUSLY WITH VERBAL STIMULI. PAIN REASSESSED. PT REPORTS PAIN 5/10. NO DISTRESS NOTED. TEMP CHECK DONE. SMALL LOCHIA NOTED. CLEAN PAD PLACED. APPROX 75ML URINE NOTED IN UROMETER AND DUMPED. SCD WRAPS REMAIN ON BILATERALLY. REMAIN CONNECTED TO PUMP. PUMP IS ON AND FUNCTIONING. FRESH ICE PACK PROVIDED. PT PERFORMS I.S. X 3. ABLE TO PULL 2000 W/MODERATE EFFORT. COUGHS W/POOR EFFORT. PT DENIES NEEDS AT THIS TIME. BED LOW, SIDE RAILS UP X 2. CALL LIGHT AND MANUFACTURER'S REPRESENTATIVE BUTTON AT PT'S SIDE.
--- NOTE | 2020-07-17 15:00 | NUR ---
QBL COLLECTED POSTOP BEGINNING AT 1245 = 30ML. SEE OUTPUT FLOWSHEET.
--- NOTE | 2020-07-17 16:00 | NUR ---
ROUNDS MADE. PT RESTING QUIETLY W/EYES CLOSED. RESP EVEN AND UNLABORED. OPENS EYES SPONTANEOUSLY W/VERBAL CUE. PAIN AND NEEDS ASSESSED. PT REPORTS PAIN 08/24. REQUEST EMERGENCY CONTACTS PHONE NUMBER. NUMBER PROVIDED. NO FURTHER NEEDS VOICED AT THIS TIME.
--- NOTE | 2020-07-17 17:00 | NUR ---
RN TO BEDSIDE. PT LYING AWAKE IN BED W/BABY UP IN ARMS. PT TALKING ON THE PHONE. PAIN AND NEEDS ASSESSED. PT STATES "I'M FINE." WHEN ASKED TO RATE HER PAIN. PT REPORTS PAIN 5/10. NO FURTHER PAIN INTERVENTIONS REQUESTED AT THIS TIME. APPROX 350ML URINE NOTED IN UROMETER AND DUMPED AT THIS TIME. PRODUCTION CORRUGATOR DOSE DECREASED TO 0.2MG Q 10MINS. BED LOW, SIDE RAILS UP X 2. CALL LIGHT, PHONE AND PRODUCTION CORRUGATOR BUTTON AT PT'S SIDE.
--- NOTE | 2020-07-17 17:30 | NUR ---
RN TO BEDSIDE. PT AWAKE LYING IN BED IN [place]IGH [place]'S VISITING W/QUEST. PAIN AND NEEDS ASSESSED. PT STILL REPORTS PAIN 5/10. MEDICATION TEACHING PROVIDED. NO FURTHER PAIN INTERVENTIONS REQUESTED AT THIS TIME. MODERATE AMOUNT OF RUBRA LOCHIA NOTED TO PERIPAD. PERICARE DONE. CHUX CHANGED. APPROX 110ML URINE NOTED IN UROMETER. SCD WRAPS REMAIN IN PLACE BILATERALLY. REMAIN CONNECTED TO PUMP. PUMP IS ON AND FUNCTIONING. I.S. PERFORMED X 3. ABLE TO PULL APPROX 1100. WITH MODERATE EFFORT. COUGHS WITH POOR EFFORT. PT TURNS SELF SIDE TO SIDE W/OUT ASSISTANCE. DENIES PASSING FLATUS OF YET.
--- NOTE | 2020-07-17 18:00 | NUR ---
RN TO BEDSIDE FOR I&O, PAIN AND NEEDS ASSESSMENT. PT CURRENTLY TALKING ON THE PHONE AND VISITING W/GUEST. PT CONTINUES TO RATE PAIN 5/10, BUT STATES "I'M FINE." NO REQUEST FOR ADDITIONAL PAIN INTERVENTIONS AT THIS TIME. IV PUMPS CLEARED. APPROX 35ML URINE NOTED IN UROMETER AND DUMPED AT THIS TIME. APROX TOTAL OF 700ML URINE RECORDED FOR [id number]. FRESH ICE WATER SERVED. PT DENIES FURTHER NEEDS. BED LOW, SIDE RAILS UP X 2. CALL LIGHT, PHONE AND MANAGER HEALTH BUTTON AT PT'S SIDE. BABY UP IN ARMS FOR BONDING.
--- NOTE | 2020-07-17 18:17 | NUR ---
TORADOL 30MG SIVP GIVEN.
--- NOTE | 2020-07-17 18:51 | NUR ---
DHS TO PT'S ROOM AT THIS TIME.
--- NOTE | 2020-07-17 19:15 | NUR ---
BEDSIDE SHIFT REPORT RECEIVED. SHIFT ASSESSMENT COMPLETED. SEE FLOWSHEET. PT DENIES NEEDS AT THIS TIME. BED LOW, WHEELS LOCKED, CALL LIGHT AND PHONE WITHIN REACH. WILL CONTINUE TO MONITOR.
--- NOTE | 2020-07-17 20:12 | NUR ---
0.4 MG DILAUDID BOLUS DOSE GIVEN AT THIS TIME FOR PT C/O PAIN 10/24. PT AAOX3. DENIES FURTHER NEEDS.
--- NOTE | 2020-07-17 20:22 | NUR ---
PT BASIN CLEANER LIGHT REQUESTING PERIPAD TO BE CHANGED. SAME PROVIDED. SMALL LOCHIA RUBRA NOTED TO PERIPAD. PT ASKS WHEN SHE CAN EAT "REAL FOOD" ADVISED THAT HER ORDER IS FOR CLEAR LIQUIDS AT THIS TIME.
--- NOTE | 2020-07-17 21:15 | NUR ---
6 visitors attempted to walk into patient's room at this time and stopped per this RN. animal shelter supervisor, Belem, and microfilm duplicating unit supervisor, Maria Luisa Norwood, RN called and verified visitor policy of 1 visitor per 24 hrs. Hospital security called to remove visitors and 1 left in room with patient. Pt then had the remaining family member come to the nurse desk to ask to talk to someone. RN to bedside. Pt states, "I want to talk to someone, NOT YOU. You've been picking since you got here and you should have been worried about changing this pad I'm sitting on instead of worrying about my visitors. THis BLOODY pad." Advised patient that I changed her peripad, underpads were not bloody, or wet, when examined pads were clean and dry. Pt continued to argue and wanted to speak with "the head of the hospital." Belem, roundhouse firer/fireman notified of pt request. Pt also stated, "I don't want you to be my nurse. I want someone else."
--- NOTE | 2020-07-17 22:15 | NUR ---
PT CARE ASSUMED PER REQUEST OF PT. WILL MONITOR. DENIES NEEDS AT PRESENT TIME.
--- NOTE | 2020-07-17 22:35 | NUR ---
ON ENTRY TO ROOM, PT TEARFUL ON CELL PHONE CALL, ON INQUIRY ABOUT PAIN PT STATES USING LABORATORY MILLER FOR CONTROL OF PAIN, REMINDED ON USE OF LABORATORY MILLER BUTTON AND PARAMETERS, PT VOICES UNDERSTANDING. VSS. AFEBRILE, ABD SOFT AND MILDLY TENDER FF AT U/2 AND MIDLINE, URINE OUTPUT 450 ML-EMPTIED CHAMBER AND RESET TO GRAVITY DRAINAGE, ICE PACK OVERLAY TO INCISION REFRESHED, JIMENEZ FREELY, REFUSES PERICARE AT PRESENT STATING "THAT OTHER LADY DID THAT", PEDAL PULSES STRONG/=/+2, SCDS IN PLACE. REMINDED ON USE OF INCENTIVE SPIROMETRY, PRN SLEEP MED GIVEN WITH SIPS OF WATER. OVERBED LIGHTS DIMMED PER PT REQUEST, C/L PLACED WITHIN EASY REACH OF PT, INFANT IN NURSERY, SR UP X2, BED IN LOW POSITION, WILL MONITOR.
--- NOTE | 2020-07-18 00:18 | NUR ---
ON ROUNDS, PT RESTING WITH EYES CLOSED, RESP EVEN AND UNLABORED, HOB ELEVATED 30 DEGREES, HR 80, SCHEDULED KETORALAC ADMINISTERED PER MD ORDERS, NAD NOTED, C/L IN EASY REACH OF PT, CONTINUE TO MONITOR.
--- NOTE | 2020-07-18 02:15 | NUR ---
ROUNDS COMPLETED, PERICARE PROVIDED WITH CHUX/PERIPAD CHANGE, LOCHIA RUBRA LIGHT AMOUNT NOTED AND NO CLOTS, CHANEY TO GRAVITY DRAINAGE WITH 350ML OUTPUT EMPTIED AND RESET TO GRAVITY DRAINAGE, PT POSITIONING SELF IN BED WITHOUT DIFFICULTY, REMINDED TO USE DOCUMENT MANAGEMENT TECHNICIAN BUTTON FOR PAIN MANAGEMENT AND PT DEMONSTRATES THIS NOW. PIV TO RIGHT WRIST BENIGN TO INPSECTION AND PATENT INFUSING NS WITH 20 UNITS PITOCIN ADDED AT 125ML/HR PER IVAC. NAD NOTED. WILL CONTINUE TO MONITOR.
[2020-07-18 03:20] VITALS: BP 101/55
--- NOTE | 2020-07-18 03:20 | NUR ---
MASTER COSMETOLOGIST AND SCD ALARM NOTED ON ROUNDS. CHANGED OUT MASTER COSMETOLOGIST DILAUDID PER MD ORDERS AND ADJUSTED SCD TO LLE TO RESOLVE ALARM. PT DENIES NEEDS AT THIS TIME BUT DOES ASK IF IT'S MORNING YET, REORIENTED TO TIME, PT STATES DESIRE TO CONTINUE TO REST WITH INFANT IN NURSERY FOR NOW. VSS, AFEBRILE, C/L IN EASY REACH OF PT, SR UP X2, BED IN LOW POSITION. CONTINUE TO MONITOR.
--- NOTE | 2020-07-18 05:10 | NUR ---
ROUNDS COMPLETED, RESP EVEN AND UNLABORED, EYES CLOSED, NAD NOTED. CONTINUE TO MONITOR.
--- NOTE | 2020-07-18 06:05 | NUR ---
ROUNDS COMPLETED, PT WAKES ON ENTRY TO ROOM, REQUESTS TO ROOM AND SAME PROVIDED, PERICARE PROVIDED WITH CHUX/PERIPADS CHANGED OUT, FF AT U/2 AND MIDLINE, LOCHIA RUBRA LIGHT TO MODERATE WITH LESS THAN 10 PINPOINT CLOTS NOTED WITH PERICARE. ICE PACK OVERLAY REPLACED OVER ABD DRESSING THAT REMAINS CDI TO INSPECTION. PROVIDED [place] PEQUOT SODA AND APPLE JUICE PER REQUEST, DENIES OTHER NEEDS/CONCERNS AT THIS TIME. WILL MONITOR.
[2020-07-18 06:10] LABS: RAPID PLASMA REAGIN Non Reactive (Non Reactive)
[2020-07-18 07:15] VITALS: BP 111/78
--- NOTE | 2020-07-18 07:15 | NUR ---
PATIENT ASSESSMENT COMPLETED AT BEDSIDE. PATIENT COMPLAINS OF PAIN 09/24. PLAN OF CARE UPDATED AT BEDSIDE. PATIENT DENIES QUESTIONS OR CONCERNS WITH INFORMATION GIVEN. PATIENT WITH RIGHT WRIST PIV WITH LR AND DILAUDID MARKET ANALYST INFUSING. CHANEY PRESENT DRAINING TO GRAVITY CLEAR JESSICA URINE. 150 ML NOTED IN COLLECTION CONTAINER. INCISION COVERED WITH DRESSING. FUNDUS MIDLINE, FIRM AND AT UMBILICUS. BLEEDING SCANT. SMALL CLOT DIME SIZE NOTED ON PERIPAD. SCD PRESENT ON BILATERAL LOWER EXTREMITIES. BED IN LOW POSITION, SIDE RAILS UP X2, CALL LIGHT WITHIN REACH.
[2020-07-18 07:45] LABS: BASOPHILS 0.1 % (0-2); EOSINOPHILS 0.2 % (0-7); HEMATOCRIT 27.3 % (36.0-48.0); HEMOGLOBIN 8.5 g/dL (12-16); IMMATURE GRANULOCYTES 0.3 % (0-5); LYMPHOCYTES 8.9 % (15-50); MCH 25.7 pg (26.0-34.0); MCHC 31.1 g/dL (31.0-37.0); MCV 82.5 fL (80.0-100.0); MEAN PLATELET VOLUME 11.2 fL (7.4-10.4); MONOCYTES 4.1 % (2-11); NEUTROPHIL ABS# 8.75 10x3/uL (1.56-6.13); NEUTROPHILS 86.4 % (40-80); PLATELET COUNT 173 10x3/uL (130-400); RBC 3.31 10x6/uL (4.00-5.40); RDW 14.3 % (11.5-14.5)
[2020-07-18 07:51] LABS: WBC 10.1 10x3/uL (4.8-10.8)
--- NOTE | 2020-07-18 08:15 | NUR ---
PATIENT SALINED LOCKED. LR AND DILAUDID DC'D. CHANEY REMOVED. 100 ML OF URINE NOTED IN THE CONTAINER. PATIENT AMBULATED TO RESTROOM. 30 ML OF URINE VOIDED POST CHANEY REMOVAL. PERICARE PERFORMED. PATIENT ASSISTED TO BED WITH NO DIFFICULTY.
--- NOTE | 2020-07-18 13:30 | NUR ---
PATIENT RESTING WITH EVEN, UNLABORED RESPIRATIONS. ROUNDING COMPLETED. NO NEEDS NOTED AT THIS TIME. BED IN LOW POSITION, SIDE RAILS UP X2, CALL LIGHT WITHIN REACH.
[2020-07-18 13:45] VITALS: BP 123/88
--- NOTE | 2020-07-18 15:15 | NUR ---
DHS AT BEDSIDE.
--- NOTE | 2020-07-18 15:25 | NUR ---
RN TO PATIENT'S BEDSIDE TO EXPLAIN THE IMPORTANCE OF UPDATING INFORMATION WITH DHS WORKING TO EXPEDIATE DISCHARGE PROCEDURE TOMORROW ONCE HOME VISIT IS COMPLETED TODAY IF EVERYTHING WENT WELL. PATIET VERBALIZED UNDERSTANDING OF THE INFORMATION PROVIDED. DHS WORKER INFORMED TO RE-ENTER ROOM.
--- NOTE | 2020-07-18 16:47 | MORECARE ---
CASE MANAGEMENT DISCHARGE SUMMARY PATIENT: SATHYA ESTRADA UNIT: [id number] ADM DATE: 07/17/20 AGE: 25 : 94 SEX: F ROOM/BED: D.1274 AUTHOR: SUSI,DOC PHYSICIAN: REFERRING PHYSICIAN: DAMON FARRIS MD DATE OF SERVICE: 07/18/20 Case Management Discharge Planning Summary CT Patient Name: SATHYA ESTRADA Attending MD : DAMON FIELD Medical Record: [id number] Encounter : [id number] Facility : [address] [place] [address] Medical Admission Date : 07/17/2020 7:32 Center Discharge Date : [address] [place] [address] Date of : DC Plan ID : [id number] Age/Sex/Martia : 25/ F/S Printed on : 07/18/20 16:46 CT DCP Review Details Anticipated D/C: 07/19/2020 Expected LOS : 2 Case Status : INITIATED - Initial Reviewe: [id number] - Karen Sellers Initial Review: 07/17/2020 Planned Disposi: 01 - Home or Self Care (Routine Discharge) Final Discharge: - Final Reviewer : : Final Review : Comments CT Entered Date Type Reviewer 07/18/20 16:33 CT Discharge Planning Karen Sellers Comment Received consult for +UDS. CM met with Nursery staff and was informed that infant was negative for THC. CM met with MOB, Sathya Estrada ([phone]) to discuss DC needs. Pt was alone in the room. BG is named Jorge Luis Bailey. MOB stated that she is not employed. MOB stated that she currently receives food stamps. MOB stated that she currently receives WIC. MOB stated that she plans to formula feed. MOB stated that she has plenty of bottles, clothes, and diapers. MOB further stated that she has a car seat and crib for BG Kang. MOB stated that she has 3 other children, ages 7,5,and 3. MOB stated that she lives at [address] [address] in [place], [place]. MOB stated that her home has electric heat and air and has smoke detectors at ceiling height installed throughout the home. MOB stated that the home has city water and stated an understanding that city tap water should not be used to mix baby formula and further stated that she knows to use distilled water or Nursery water. MOB stated that she will provide childcare during the day for her children. MOB stated that she did not attend parenting classes and does not plan to attend classes. MOB stated that she received care for the entire . MOB stated that her interlocking machine operator is Dr. Aguayo. MOB stated that Dr. Faulkner will be Jorge Luis's clay artisan. MOB stated her transportation home will be provided by her mother (Nicki Estrada). MOB stated that there are no pets, smokers, excessive ETOH or drugs inside the home. MOB denies smoking or using marijuana during the . MOB denies any concerns about taking the baby home. Denies any discharge planning needs at this time. CM will continue to follow and assist as needed with discharge planning / needs. DCP Focus Questions & Answers DCP Evaluation Patient's ability to cope with chronic illness d. No chronic illness Physical Status: Independent with ADL's Living Arrangements: Home with others Living arrangements comments: Home with 3 other siblings Baseline cognitive status: *Oriented to person, place, situation, time and present Medication Management: Patient states can afford medications Pharmacy name(s): [facility] Does Patient have transportation to get home and Yes to follow-up medical appointments when discharged from the hospital? Would patient like to participate in any Care Not applicable Coordination programs (if applicable): Does the patient have electricity at home? Yes Does the patient have running water in their Yes house? Comment (running water): City water Equipment in use: None Mental health screen: No mental health history Problems identified by the patient regarding none discharge: DCP Re-evaluation Would patient like to participate in any Care Not applicable Coordination programs (if applicable): [facility] SATHYA ESTRADA MR#: [id number] /Age/Sex/[id number]-16 /25/F /S Attending Physician Name: Sakina FARRIS [id number] Patient Account:[id number] [facility] Page -1 of 1 All edits/amendments must be made on the electronic document DICTATION DATE: 07/18/201645 SENIOR MECHANICAL ESTIMATOR: ARNIE 07/18/201645 RPT#: [id number] DC DATE: STATUS: ADM IN [facility] [address] [place] [address] END OF REPORT
--- NOTE | 2020-07-18 17:34 | NUR ---
PATIENT IN BED RESTING EASILY AWAKEN UPON RN ENTERING ROOM. PATIENT DENIES NEEDS AT THIS TIME. RN CHECKED TO SEE IF THE PATIENT HAS URINATED LATELY. PATIENT DENIES. STATES SHE HAS BEEN SLEEPING. BED IN LOW POSIITON, CALL LIGHT WITHIN REACH, SIDE RAILS UP X2.
[2020-07-18 19:10] VITALS: BP 115/64
--- NOTE | 2020-07-18 19:10 | NUR ---
PM ASSESSMENT COMPLETED, AAOX4, IN ARMS, BONDING NOTED, PRN PAIN MEDS GIVEN FOR C/O INCISIONAL PAIN REQUESTED, CUP OF ICE, BAG OF CHIPS, AND ICE PACK OVERLAY PROVIDED TO PT. NO OTHER NEEDS VOICED AT THIS TIME. REVIEWED POC THIS PM TO INCLUDE AMBULATION IN HALLS. PT VOICES UNDERSTANDING OF ALL INFORMATION PROVIDED. C/L IN EASY REACH, SR UP X2, BED IN LOW POSITION, BED BRAKES LOCKED. CONTINUE TO MONITOR.
--- NOTE | 2020-07-18 20:30 | NUR ---
ROUNDS COMPLETED, CONSUMED 100% SNACK TRAY PROVIDED, CUP OF ICE WATER PROVIDED UPON REQUEST, NO OTHER NEEDS VOICED AT THIS TIME, C/L IN ESY REACH,ENCOURAGED PT TO USE C/L PRN NEEDS/CONCERNS/QUESTIONS, PT STATES UNDERSTANDING. CONTINUE TO MONITOR.
--- NOTE | 2020-07-18 21:15 | NUR ---
ROUNDS COMPLETED, INFANT IN ARMS, BONDING WELL. NAD NOTED. C/L IN EASY REACH, DENIES NEEDS/CONCERNS AT PRESENT.
--- NOTE | 2020-07-18 22:30 | NUR ---
ROUNDS COMPLETED, CRAN-APPLE JUICE PROVIDED PER REQUEST, ICE PACK OVERLAY REFRESHED TO INCISION SITE DRESSING. NO OTHER NEEDS VOICED AT PRESENT, WILL MONITOR. C/L IN EASY REACH OF PT.
--- NOTE | 2020-07-18 23:33 | NUR ---
ROUNDS COMPLETED, NAD NOTED, SCDS OFF PER PT REQUEST. C/L IN EASY REACH, CONTINUE TO MONITOR.
--- NOTE | 2020-07-19 01:41 | NUR ---
PT AMBULATORY IN HALLS, REQUESTING PRN PAIN MEDICATIONS-WANTS BOTH MOTRIN AND NORCO PER MD ORDERS-SAME PROVIDED. ALSO PROVIDED CUP OF ICE AND ICE PACK OVERLAY REQUESTED. POSITIONED IN BED TO COMFORT ON ADMINISTRATION OF MEDS, SR UP X2, BED IN LOW POSITION, INFANT IN NURSERY AT THIS TIME, WILL MONITOR FOR EFFECT.
--- NOTE | 2020-07-19 02:30 | NUR ---
PT RESTING WITH EYEES CLOSED IN BED, NAD NOTED. C/L IN EASY REACH OF PT, BED IN LOW POSITION, BED BRAKES LOCKED, SR UP X2, WILL MONITOR.
--- NOTE | 2020-07-19 04:22 | NUR ---
UP TO BR, NAD NOTED, VOIDING WITHOUT DIFFICULTY, DENIES NEEDS AT PRESENT, CONTINUE TO MONITOR.
--- NOTE | 2020-07-19 06:07 | NUR ---
ROUNDS COMPLETED, INFANT IN NURSERY, PT RESTING WITH EYES CLOSED, NAD NOTED. C/L IN EASY REACH.
[2020-07-19 07:30] VITALS: BP 114/62
--- NOTE | 2020-07-19 07:30 | NUR ---
PATIENT ASSESSMENT COMPLETED AT BEDSIDE. VSS. RIGHT WRIST PIV INTACT. REMOVED USING ASEPTIC TECHNIQUE. PATIENT COMPLAINS OF PAIN /. PAIN MEDS GIVEN. INCISION COVERED WITH DRESSING. DRESSING CLEAN AND DRY. FUNDUS FIRM AND MIDLINE, UMBILICUS U -1. BLEEDING SCANT. PATIENT DENIES THE PRESENCE OF CLOTS. BED IN LOW POSITION, SIDE RAILS UP X2, CALL LIGHT WITHIN REACH.
--- NOTE | 2020-07-19 08:24 | NUR ---
DHS WORKER KIMI CALLED UNIT TO UPDATE RN ON PATIENT'S CASE. DHS WORKER NOTED DIFFICULTY WITH PATIENT AND NEEDING TO COMPLETE HOME VISIT. PATIENT SPOKE TO VIA CALL LIGHT SYSTEM AND SHE STATED "I TOLD THAT LADY FOR THE LAST TWO DAYS THAT I LIVE ALONE AND THERE IS NO ONE THAT IS AT MY HOUSE." DHS WORKER STATED SHE IS UNABLE TO GET PAST THE GATE AT [employer]. RN RELIED THE MESSAGE TO THE DHS WORKER FROM WHAT THE PATIENT VERBALIZED. DHS WORKER STATED WOULD NOT BE RELEASED HOME UNTIL HOME VISIT COMPLETED. DHS WORKER STATED SHE WOULD BE TO SEE PATIENT AROUND 1030 TODAY.
[2020-07-19] MEDS ORDERED: PERCOCET 7.5/321 TAB PO (10:19)
[2020-07-19] MEDS ORDERED: IBUPROFEN800 MG PO (10:20)
--- NOTE | 2020-07-19 10:41 | NUR ---
PATIENT TO BE DISCHARGED HOME IN STABLE CONDITION TO SELF CARE. PATIENT GIVEN COPY OF DISCHARGE INSTRUCTIONS, PRESCRIPTIONS, DISCHARGE EDUCATION. PATIENT INSTRUCTED TO FOLLOW UP WITH CLINIC TOMORROW ON WHEN TO SEE OB DUE TO PATIENT HAVING APPOINTMENT ON 07/28/20 PREVIOUSLY MADE AN PATIENT HAVING SUTURES INSTEAD OF MOISÉS. PATIENT VERBALIZED UNDERSTANDING OF ALL WRITTEN AND VERBAL MATERAL PRESENTED. NO ADDITIONAL NEEDS VOICED.
--- NOTE | 2020-07-19 11:07 | MORECARE ---
CASE MANAGEMENT DISCHARGE SUMMARY PATIENT: SATHYA ESTRADA UNIT: [id number] ADM DATE: 07/17/20 AGE: 25 : 94 SEX: F ROOM/BED: D.1274 AUTHOR: SUSI,DOC PHYSICIAN: REFERRING PHYSICIAN: DAMON FARRIS MD DATE OF SERVICE: 07/19/20 Case Management Discharge Planning Summary CT Patient Name: SATHYA ESTRADA Attending MD : DAMON FIELD Medical Record: [id number] Encounter : [id number] Facility : [address] [place] [address] Medical Admission Date : 07/17/2020 7:32 Center Discharge Date : 07/19/2020 [address] [place] [address] Date of : DC Plan ID : [id number] Age/Sex/Martia : 25/ F/S Printed on : 07/19/20 11:06 CT DCP Review Details Anticipated D/C: 07/19/2020 Expected LOS : 2 Case Status : INITIATED - Initial Reviewe: [id number] - Karen Sellers Initial Review: 07/17/2020 Planned Disposi: 01 - Home or Self Care (Routine Discharge) Final Discharge: - Final Reviewer : : Final Review : Comments CT Entered Date Type Reviewer 07/18/20 16:33 CT Discharge Planning Karen Sellers Comment Received consult for +UDS. CM met with Nursery staff and was informed that infant was negative for THC. CM met with COLE, Sathya Estrada ([phone]) to discuss DC needs. Pt was alone in the room. BG is named Jorge Luis Bailey. MOB stated that she is not employed. MOB stated that she currently receives food stamps. MOB stated that she currently receives WIC. MOB stated that she plans to formula feed. MOB stated that she has plenty of bottles, clothes, and diapers. MOB further stated that she has a car seat and crib for BG Kang. MOB stated that she has 3 other children, ages 7,5,and 3. MOB stated that she lives at [address] [place] [address] in [place], [place]. MOB stated that her home has electric heat and air and has smoke detectors at ceiling height installed throughout the home. MOB stated that the home has city water and stated an understanding that city tap water should not be used to mix baby formula and further stated that she knows to use distilled water or Nursery water. MOB stated that she will provide childcare during the day for her children. MOB stated that she did not attend parenting classes and does not plan to attend classes. MOB stated that she received care for the entire . MOB stated that her cnc programmer is Dr. Aguayo. MOB stated that Dr. Faulkner will be Jorge Luis's rn emergency room. MOB stated her transportation home will be provided by her mother (Nicki Estrada). MOB stated that there are no pets, smokers, excessive ETOH or drugs inside the home. MOB denies smoking or using marijuana during the . MOB denies any concerns about taking the baby home. Denies any discharge planning needs at this time. CM will continue to follow and assist as needed with discharge planning / needs. DCP Focus Questions & Answers DCP Evaluation Patient's ability to cope with chronic illness d. No chronic illness Physical Status: Independent with ADL's Living Arrangements: Home with others Baseline cognitive status: *Oriented to person, place, situation, time and present Living arrangements comments: Home with 3 other siblings Medication Management: Patient states can afford medications [facility] Does Patient have transportation to get home and Yes to follow-up medical appointments when discharged from the hospital? Would patient like to participate in any Care Not applicable Coordination programs (if applicable): Does the patient have electricity at home? Yes Does the patient have running water in their Yes house? Comment (running water): City water Equipment in use: None Mental health screen: No mental health history Problems identified by the patient regarding none discharge: DCP Re-evaluation Would patient like to participate in any Care Not applicable Coordination programs (if applicable): [facility] SATHYA ESTRADA MR#: [id number] /Age/Sex/[id number]-Wne-33 /25/F /S Attending Physician Name: Sakina FARRIS [id number] Patient Account:[id number] [facility] Page -1 of 1 All edits/amendments must be made on the electronic document DICTATION DATE: 07/19/201105 PEST CONTROL SUPERVISOR: ARNIE 07/19/20 1106 RPT#: [id number] DC DATE:07/19/20 STATUS: DIS IN [facility] [address] [place] [address] END OF REPORT
[2020-07-22 13:11] LABS: UDSC - AMPHET Negative ng/mL (Cutoff=1000); UDSC - BARB Negative ng/mL (Cutoff=300); UDSC - BENZO Negative ng/mL (Cutoff=300); UDSC - COC Negative ng/mL (Cutoff=300); UDSC - METH Negative ng/mL (Cutoff=300); UDSC - OPIATES Negative ng/mL (Cutoff=300); UDSC - PCP Negative ng/mL (Cutoff=25); UDSC - PROPOXY Negative ng/mL (Cutoff=300); UDSC - THC Positive (Cutoff=50)
== END 2020-07-19 10:56 | disposition home or self-care (01) | DRG 785 ==
LOC: D.LD 07-17 07:32 → D.SDCHOLD 07-17 08:30 → D.LD 07-19 10:56
PROVIDERS: ADMIT Obstetrics & Gynecology; ATTEND Obstetrics & Gynecology
PROC: 0UB70ZZ Excision of Bilateral Fallopian Tubes, Open Approach (ICD-10-PCS; 2020-07-17)
PROC: 10D00Z1 Extraction of Products of Conception, Low, Open Approach (ICD-10-PCS; principal; 2020-07-17 08:30)
DX: O99.824 Streptococcus B carrier state complicating childbirth (principal); Z3A.39 39 weeks gestation of pregnancy; Z37.0 Single live birth; O34.219 Maternal care for unspecified type scar from previous cesarean delivery; N85.8 Other specified noninflammatory disorders of uterus; Z30.2 Encounter for sterilization